=== PATIENT | male | born 1985 | race Caucasian/White ===

== ENCOUNTER 2017-01-10 14:55 | Emergency (ER) | payer OTHER ==
--- NOTE | 2017-01-10 15:48 | DIAGNOSTIC IMAGING REPORT ---
PROCEDURE: XR KNEE 4 VIEWS - LEFT INDICATION: PAIN, SWELLING, TWISTED IN A FEW DAYS AGO TECHNIQUE: Four views. COMPARISON: None. FINDINGS: Osseous structures and joint spaces are normal. There is a bipartite patella. IMPRESSION: 1. Bipartite patella. Normal knee.
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
--- NOTE | 2017-01-10 16:57 | ED ORDER SUMMARY ---
..... Patient: KINA JEONG JR OrderSheet [facility] VisitID: [id number] [place] [address] 31y, M Registration Date/Time: 01/10/2017 ORDER SHEET Weight: 104.3 kg (stated) Allergies: Methocarbamol GENERAL ORDERS: Knee 4V Left Urgent (15:14 01/10/2017 Jon Chavez) (Ack 15:20 Angyrglenys) (15:40 Marielena) Ice (15:16 01/10/2017 Jon Chavez) (15:42 Alice R.N.) Immobilizer - knee (17:31 01/10/2017 Alice R.N. verbal order read back to Jon Chavez) (17:31 Alice R.N.) MEDICATION ORDERS: Hydrocodone-APAP PO 5/325 mg (NOW, HIGH ALERT MEDICATION) (15:15 01/10/2017 Jon Chavez) (Ack 15:23 Myrna R.NReed) (15:42 Alice R.N.) IV FLUIDS: ORDER SHEET NOTES: [Electronically signed by Melissa Zaragoza R.N. (19:54 01/10/2017)] [Electronically signed by Marco A Weathers Dr. (13:53 01/11/2017)] [Electronically locked/signed by Melissa Zaragoza R.N. (19:54 01/10/2017)]
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
--- NOTE | 2017-01-10 16:57 | ED ORDER SUMMARY ---
..... Patient: KINA JEONG JR OrderSheet [facility] VisitID: [id number] [place] [address] 31y, M Registration Date/Time: 01/10/2017 ORDER SHEET Weight: 104.3 kg (stated) Allergies: Methocarbamol GENERAL ORDERS: Knee 4V Left Urgent (15:14 01/10/2017 Jon Chavez) (Ack 15:20 Angyrglenys) (15:40 Marielena) Ice (15:16 01/10/2017 Jon Chavez) (15:42 Alice R.N.) Immobilizer - knee (17:31 01/10/2017 Alice R.N. verbal order read back to Jon Chavez) (17:31 Alice R.N.) MEDICATION ORDERS: Hydrocodone-APAP PO 5/325 mg (NOW, HIGH ALERT MEDICATION) (15:15 01/10/2017 Jon Chavez) (Ack 15:23 Myrna R.NReed) (15:42 Alice R.N.) IV FLUIDS: ORDER SHEET NOTES: [Electronically signed by Melissa Zaragoza R.N. (19:54 01/10/2017)] [Electronically signed by Marco A Weathers Dr. (13:53 01/11/2017)] [Electronically locked/signed by Melissa Zaragoza R.N. (19:54 01/10/2017)]
--- NOTE | 2017-01-11 13:53 | ED DISCHARGE INSTRUCTIONS ---
Patient: KINA JEONG JR General Instructions [facility] VisitID: [id number] [place] [address] 31y, M Registration Date/Time: 01/10/2017 Hypertensive. Oxygen saturation normal. Left knee effusion (acute). Sprain of the left medial collateral ligament. Essential hypertension. INSTRUCTIONS Warnings: GENERAL WARNINGS: Return or contact your physician immediately if your condition worsens or changes unexpectedly, if not improving as expected, or if other problems arise. Specifically return if pain, vomiting, bleeding, breathing difficulty or fever. Your Current Medications: CONTINUE TAKING THE FOLLOWING MEDICATIONS: None*. Prescription Medications: Redding 5 mg / 325 mg tablets: take 1 orally every 6 hours as needed for pain. Dispense fifteen (15). No refill. Substitution is permissible. Motrin 600 mg tablets: take 1 tablet orally every 6 hours as needed for pain, stiffness or swelling. Dispense thirty (30). No refill. Substitution is permissible. Follow-up: Return to the emergency department as needed. Follow up with your doctor in three days. Reason for referral: recheck today's concerns. Summary of care provided to patient via paper. Screening today revealed the patient's blood pressure to be in the hypertensive range. The patient should follow up with a primary care provider for blood pressure management. Understanding of the discharge instructions verbalized by patient. ADDITIONAL INFORMATION Sprain, Knee A sprain is an injury to the ligaments or capsule that holds a joint together. There are no broken bones. Most sprains take three to six weeks to heal. If the ligament is completely torn (severe sprain), it can take months to recover from. Most knee sprains are treated with a splint, knee immobilizer or elastic wrap for support. Severe sprains may require surgery. Home care The following guidelines will help you care for your injury at home: Stay off the injured leg as much as possible until you can walk on it without pain. If you have a lot of pain with walking, crutches or a walker may be prescribed. (These can be rented or purchased at many pharmacies and surgical or orthopedic supply stores). Follow your doctor's advice regarding when to begin bearing weight on that leg. Keep your leg elevated to reduce pain and swelling. When sleeping, place a pillow under the injured leg. When sitting, support the injured leg so it is level with your waist. This is very important during the first 48 hours. Apply an ice pack (ice cubes in a plastic bag, wrapped in a towel) over the injured area for 20 minutes every 12 hours the first day. You can place the ice pack directly over the splint. If a Velcro knee immobilizer was applied, you can open this to apply the ice pack directly to the knee. Continue with ice packs 34 times a day for the next two days, then as needed for the relief of pain and swelling. You may use acetaminophen or ibuprofen to control pain, unless another pain medicine was prescribed. If you have chronic liver or kidney disease or ever had a stomach ulcer or GI bleeding, talk with your doctor before using these medicines. If you were given a splint, keep it completely dry at all times. Bathe with your splint out of the water, protected with a large plastic bag, rubber-banded at the top end. If a fiberglass splint gets wet, you can dry it with a hair-dryer. If you have a Velcro knee immobilizer, you can remove this to bathe, unless told otherwise. Follow-up care Follow up with your doctor as advised. Any X-rays you had today dont show any broken bones, breaks, or fractures. Sometimes fractures dont show up on the first X-ray. Bruises and sprains can sometimes hurt as much as a fracture. These injuries can take time to heal completely. If your symptoms dont improve or they get worse, talk with your doctor. You may need a repeat X-ray. When to seek medical care Get prompt medical attention if any of the following occur: The plaster cast or splint becomes wet or soft The fiberglass cast or splint remains wet for more than 24 hours Pain or swelling increases Toes become cold, blue, numb or tingly High Blood Pressure -- To Be Confirmed [No Tx] Your blood pressure was higher today than normal. Sometimes anxiety or pain can cause a temporary rise in blood pressure that later returns to normal. If your blood pressure is high on one measurement, this does not mean that you have hypertension (a chronic illness). However, you must have your blood pressure measured again within the next few days to find out if its still high. A normal blood pressure is 120/80 or less. The first (top) number is the "systolic" pressure. The second (bottom) number is the "diastolic" pressure. Hypertension exists when either the top number is 140 or higher, OR the bottom number is 90 or higher on repeated measurements. Blood pressure in the range of 120-140 (systolic) or 80-89 (diastolic) is considered "pre-hypertension". This means your are at risk for getting hypertension. You should have regular blood pressure checks to be sure your blood pressure is not rising. Home Care: Measure your blood pressure on 3 different days and write down the results. This can be done at your doctor's office or this facility. Some pharmacies and grocery stores offer automated blood pressure machines for your use. Follow Up: If your blood pressure is "high" (over 120/80) on 2 out of 3 days, you will need to follow up with your doctor for further evaluation and treatment. DO NOT PUT THIS OFF! Untreated high blood pressure increases the risk for heart attack, also known as acute myocardial infarction, or AMI, and stroke. It is a treatable condition. Get Prompt Medical Attention if any of the following occur: Chest pain or shortness of breath Severe headache Throbbing or rushing sound in the ears Nosebleed Sudden severe abdominal pain Extreme drowsiness, confusion or fainting Dizziness or vertigo (dizziness with spinning sensation) Weakness of an arm or leg or one side of the face Difficulty with speech or vision Knee Effusion A knee effusion is sometimes calledwater on the knee. The knee joint normally contains less than one ounce of lubricating fluid. Injury or inflammation of the knee joint causes extra fluid to collect there. When this occurs, the knee joint looks swollen and is usually painful. There may be difficulty in fully bending the knee. The most common cause of knee effusion is osteoarthritis due to wear and tear on the joint cartilage. Other causes include injury to the cartilage, inflammatory arthritis (such as gout or rheumatoid arthritis), and infection of the joint. If the cause of your knee effusion is not certain, a needle aspiration may be performed. This procedure removes a sample of joint fluid from the knee for testing. This is done with a local anesthetic. Removing excess fluid may also relieve swelling and pain. Home Care: Limit your activities. Avoid weight-bearing activities as much as possible when your knee is painful and swollen. Keep your leg elevated to reduce pain and swelling. When sleeping, place a pillow under the injured leg. When sitting, support the injured leg so it is level with your waist. This is very important during the first 48 hours. Apply an ice pack (ice cubes in a plastic bag, wrapped in a towel) over the injured area for 20 minutes every 1-2 hours the first day. Continue with ice packs 3-4 times a day for the next two days, then as needed for the relief of pain and swelling. You may use acetaminophen (Tylenol) or ibuprofen (Motrin, Advil) to control pain, unless another pain medicine was prescribed. [NOTE: If you have chronic liver or kidney disease or have ever had a stomach ulcer, talk with your doctor before using these medicines.] Ifcrutches or a walker have been recommended, do not bear full weight on the injured leg until you can do so without pain. Check with your doctor before returning to sports or full work duties. If you were given a Velcro knee brace: You may open the splint to apply ice. You may remove the splint to bathe and sleep, unless told otherwise. Follow Up with your doctor or as advised by our staff. If you are overweight, talk to your doctor about a weight loss program. The excess weight puts extra strain on your knees. Return Promptly or contact your doctor if any of the following occur: Increasing pain, redness or swelling of the knee Fever of 100.4F (38C) or higher, or as directed by your healthcare provider Hydrocodone Bitartrate, Acetaminophen Oral tablet What is this medicine? ACETAMINOPHEN; HYDROCODONE (a set a MAYELA tiana fen; joey droe KOE done) is a pain reliever. It is used to treat mild to moderate pain. How should I use this medicine? Take this medicine by mouth. Swallow it with a full glass of water. Follow the directions on the prescription label. If the medicine upsets your stomach, take the medicine with food or milk. Do not take more than you are told to take. Talk to your facility maintenance technician regarding the use of this medicine in children. This medicine is not approved for use in children. What side effects may I notice from receiving this medicine? Side effects that you should report to your doctor or health career resource technician as soon as possible: allergic reactions like skin rash, itching or hives, swelling of the face, lips, or tongue breathing problems confusion feeling faint or lightheaded, falls stomach pain yellowing of the eyes or skin Side effects that usually do not require medical attention (report to your doctor or health career resource technician if they continue or are bothersome): nausea, vomiting stomach upset What may interact with this medicine? alcohol antihistamines isoniazid medicines for depression, anxiety, or psychotic disturbances medicines for sleep muscle relaxants naltrexone narcotic medicines (opiates) for pain phenobarbital ritonavir tramadol What if I miss a dose? If you miss a dose, take it as soon as you can. If it is almost time for your next dose, take only that dose. Do not take double or extra doses. Where should I keep my medicine? Keep out of the reach of children. This medicine can be abused. Keep your medicine in a safe place to protect it from theft. Do not share this medicine with anyone. Selling or giving away this medicine is dangerous and against the law. Store at room temperature between 15 and 30 degrees C (59 and 86 degrees F). Protect from light. Keep container tightly closed. Throw away any unused medicine after the expiration date. Discard unused medicine and used packaging carefully. Pets and children can be harmed if they find used or lost packages. What should I tell my health care provider before I take this medicine? They need to know if you have any of these conditions: brain tumor Crohn's disease, inflammatory bowel disease, or ulcerative colitis drink more than 3 alcohol-containing drinks per day drug abuse or addiction head injury heart or circulation problems kidney disease or problems going to the bathroom liver disease lung disease, asthma, or breathing problems an unusual or allergic reaction to acetaminophen, hydrocodone, other opioid analgesics, other medicines, foods, dyes, or preservatives or trying to get breast-feeding What should I watch for while using this medicine? Tell your doctor or health career resource technician if your pain does not go away, if it gets worse, or if you have new or a different type of pain. You may develop tolerance to the medicine. Tolerance means that you will need a higher dose of the medicine for pain relief. Tolerance is normal and is expected if you take the medicine for a long time. Do not suddenly stop taking your medicine because you may develop a severe reaction. Your body becomes used to the medicine. This does NOT mean you are addicted. Addiction is a behavior related to getting and using a drug for a non-medical reason. If you have pain, you have a medical reason to take pain medicine. Your doctor will tell you how much medicine to take. If your doctor wants you to stop the medicine, the dose will be slowly lowered over time to avoid any side effects. You may get drowsy or dizzy when you first start taking the medicine or change doses. Do not drive, use machinery, or do anything that may be dangerous until you know how the medicine affects you. Stand or sit up slowly. There are different types of narcotic medicines (opiates) for pain. If you take more than one type at the same time, you may have more side effects. Give your health care provider a list of all medicines you use. Your doctor will tell you how much medicine to take. Do not take more medicine than directed. Call emergency for help if you have problems breathing. The medicine will cause constipation. Try to have a bowel movement at least every 2 to 3 days. If you do not have a bowel movement for 3 days, call your doctor or health career resource technician. Too much acetaminophen can be very dangerous. Do not take Tylenol (acetaminophen) or medicines that contain acetaminophen with this medicine. Many non-prescription medicines contain acetaminophen. Always read the labels carefully. Ibuprofen Oral tablet What is this medicine? IBUPROFEN (eye BYOO proe fen) is a non-steroidal anti-inflammatory drug (NSAID). It is used for dental pain, fever, headaches or migraines, osteoarthritis, rheumatoid arthritis, or painful monthly periods. It can also relieve minor aches and pains caused by a cold, flu, or sore throat. How should I use this medicine? Take this medicine by mouth with a glass of water. Follow the directions on the prescription label. Take this medicine with food if your stomach gets upset. Try to not lie down for at least 10 minutes after you take the medicine. Take your medicine at regular intervals. Do not take your medicine more often than directed. A special MedGuide will be given to you by the pharmacist with each prescription and refill. Be sure to read this information carefully each time. Talk to your facility maintenance technician regarding the use of this medicine in children. Special care may be needed. What side effects may I notice from receiving this medicine? Side effects that you should report to your doctor or health career resource technician as soon as possible: allergic reactions like skin rash, itching or hives, swelling of the face, lips, or tongue black or bloody stools, blood in the urine or in vomit breathing problems changes in vision chest pain general ill feeling or flu-like symptoms nausea or vomiting redness, blistering, peeling or loosening of the skin, including inside the mouth slurred speech or weakness on one side of the body stomach pain unexplained weight gain or swelling unusually weak or tired yellowing of eyes or skin Side effects that usually do not require medical attention (report to your doctor or health career resource technician if they continue or are bothersome): constipation or diarrhea dizziness gas or heartburn stomach upset What may interact with this medicine? Do not take this medicine with any of the following medications: cidofovir ketorolac methotrexate pemetrexed This medicine may also interact with the following medications: alcohol aspirin diuretics lithium other drugs for inflammation like prednisone warfarin What if I miss a dose? If you miss a dose, take it as soon as you can. If it is almost time for your next dose, take only that dose. Do not take double or extra doses. Where should I keep my medicine? Keep out of the reach of children. Store at room temperature between 15 and 30 degrees C (59 and 86 degrees F). Keep container tightly closed. Throw away any unused medicine after the expiration date. What should I tell my health care provider before I take this medicine? They need to know if you have any of these conditions: asthma cigarette smoker drink more than 3 alcohol containing drinks a day heart disease or circulation problems such as heart failure or leg edema (fluid retention) high blood pressure kidney disease liver disease stomach bleeding or ulcers an unusual or allergic reaction to ibuprofen, aspirin, other NSAIDS, other medicines, foods, dyes, or preservatives or trying to get breast-feeding What should I watch for while using this medicine? Tell your doctor or healthcare professional if your symptoms do not start to get better or if they get worse. This medicine does not prevent heart attack or stroke. In fact, this medicine may increase the chance of a heart attack or stroke. The chance may increase with longer use of this medicine and in people who have heart disease. If you take aspirin to prevent heart attack or stroke, talk with your doctor or health career resource technician. Do not take other medicines that contain aspirin, ibuprofen, or naproxen with this medicine. Side effects such as stomach upset, nausea, or ulcers may be more likely to occur. Many medicines available without a prescription should not be taken with this medicine. This medicine can cause ulcers and bleeding in the stomach and intestines at any time during treatment. Ulcers and bleeding can happen without warning symptoms and can cause . To reduce your risk, do not smoke cigarettes or drink alcohol while you are taking this medicine. You may get drowsy or dizzy. Do not drive, use machinery, or do anything that needs mental alertness until you know how this medicine affects you. Do not stand or sit up quickly, especially if you are an older patient. This reduces the risk of dizzy or fainting spells. This medicine can cause you to bleed more easily. Try to avoid damage to your teeth and gums when you brush or floss your teeth. You have been given the following additional information: Knee Sprain Hypertension, To Be Confirmed Knee Effusion Hydrocodone Bitartrate, Acetaminophen Oral tablet Ibuprofen Oral tablet (Electronically signed by Marco A Weathers Dr. 01/11/2017 13:53)
--- NOTE | 2017-01-11 13:53 | ED MAR SUMMARY ---
..... Medication Administration Record [facility] [address] [place] [address] Patient: KINA JEONG Visit ID: [id number] 31y, M Weight: 104.3 kg Height/Length: 70 in BMI: 33 ALLERGIES: Methocarbamol Given 15:42 01/10/2017 Melissa Zaragoza R.N. Medication Administered: HYDROCODONE-APAP [PO] (HYDROCODONE-ACETAMINOPHEN), Dose: 1 tab 5/325 mg Tablets PO. Medication Ordered: Hydrocodone-APAP PO 5/325 mg (NOW, HIGH ALERT MEDICATION).
--- NOTE | 2017-01-11 13:53 | ED MAR SUMMARY ---
..... Medication Administration Record [facility] [address] [place] [address] Patient: KINA JEONG Visit ID: [id number] 31y, M Weight: 104.3 kg Height/Length: 70 in BMI: 33 ALLERGIES: Methocarbamol Given 15:42 01/10/2017 Melissa Zaragoza R.N. Medication Administered: HYDROCODONE-APAP [PO] (HYDROCODONE-ACETAMINOPHEN), Dose: 1 tab 5/325 mg Tablets PO. Medication Ordered: Hydrocodone-APAP PO 5/325 mg (NOW, HIGH ALERT MEDICATION).
--- NOTE | 2017-01-11 13:53 | ED MED RECONCILIATION SUMMARY ---
Patient: KINA JEONG JR Medication Reconciliation Report [facility] VisitID: [id number] [place] [address] 31y, M Registration Date/Time: 01/10/2017 Weight: 104.3 kg Height/Length: 70 in. BMI: 33.0 ALLERGIES: Methocarbamol The patient's Home Medications are listed below: NONE. The source(s) of the original Home Medication information: Not obtained. The following Medications were given to the patient in the Emergency Department: Hydrocodone-APAP [PO] PO 1 tab, administered: 01/10/2017 3:42:00 PM The following Medications were prescribed to the patient: Huggins 5 mg / 325 mg tablets: take 1 orally every 6 hours as needed for pain. Dispense fifteen (15). No refill. Substitution is permissible. -- Marco A Weathers Dr. Motrin 600 mg tablets: take 1 tablet orally every 6 hours as needed for pain, stiffness or swelling. Dispense thirty (30). No refill. Substitution is permissible. -- Marco A Weathers Dr.
--- NOTE | 2017-01-11 13:53 | ED MED RECONCILIATION SUMMARY ---
Patient: KINA JEONG JR Medication Reconciliation Report [facility] VisitID: [id number] [place] [address] 31y, M Registration Date/Time: 01/10/2017 Weight: 104.3 kg Height/Length: 70 in. BMI: 33.0 ALLERGIES: Methocarbamol The patient's Home Medications are listed below: NONE. The source(s) of the original Home Medication information: Not obtained. The following Medications were given to the patient in the Emergency Department: Hydrocodone-APAP [PO] PO 1 tab, administered: 01/10/2017 3:42:00 PM The following Medications were prescribed to the patient: Norton 5 mg / 325 mg tablets: take 1 orally every 6 hours as needed for pain. Dispense fifteen (15). No refill. Substitution is permissible. -- Marco A Weathers Dr. Motrin 600 mg tablets: take 1 tablet orally every 6 hours as needed for pain, stiffness or swelling. Dispense thirty (30). No refill. Substitution is permissible. -- Marco A Weathers Dr.
== END 2017-01-10 17:05 | disposition home or self-care (01) ==
LOC: ED SRH 14:55
DX: S83.412A Sprain of medial collateral ligament of left knee, initial encounter (principal); M25.462 Effusion, left knee; I10 Essential (primary) hypertension; X50.0XXA Overexertion from strenuous movement or load, initial encounter; Y93.9 Activity, unspecified; Y92.009 Unspecified place in unspecified non-institutional (private) residence as the place of occurrence of the external cause; Y99.9 Unspecified external cause status

== ENCOUNTER 2017-03-25 15:15 | Emergency (ER) | payer OTHER ==
--- NOTE | 2017-03-25 19:01 | ED ORDER SUMMARY ---
..... Patient: KINA JEONG JR OrderSheet [facility] VisitID: [id number] [place] [address] 32y, M Registration Date/Time: 03/25/2017 ORDER SHEET Weight: 103.4 kg (stated) Allergies: Methocarbamol GENERAL ORDERS: Lumbar Spine 2 or 3V Urgent (16:41 03/25/2017 HBivens A.R.N.P.) (Ack 16:44 Marielena) (16:53 Marielena) MEDICATION ORDERS: Toradol IM 60 mg (NOW) (16:41 03/25/2017 HBivens A.R.N.P.) (Ack 18:13 Francisco R.N.) (18:18 SRelizette R.N.) IV FLUIDS: ORDER SHEET NOTES: [Electronically signed by Maria Isabel Wadsworth R.N. (19:17 03/25/2017)] [Electronically signed by Allegra Griffith.R.N.P. (20:36 03/25/2017)] [Electronically locked/signed by Maria Isabel Wadsworth R.N. (19:17 03/25/2017)]
--- NOTE | 2017-03-25 19:01 | ED ORDER SUMMARY ---
..... Patient: KINA JEONG JR OrderSheet [facility] VisitID: [id number] [place] [address] 32y, M Registration Date/Time: 03/25/2017 ORDER SHEET Weight: 103.4 kg (stated) Allergies: Methocarbamol GENERAL ORDERS: Lumbar Spine 2 or 3V Urgent (16:41 03/25/2017 HBivens A.R.N.P.) (Ack 16:44 Marielena) (16:53 Marielena) MEDICATION ORDERS: Toradol IM 60 mg (NOW) (16:41 03/25/2017 HBivens A.R.N.P.) (Ack 18:13 Francisco R.N.) (18:18 SRelizette R.N.) IV FLUIDS: ORDER SHEET NOTES: [Electronically signed by Maria Isabel Wadsworth R.N. (19:17 03/25/2017)] [Electronically signed by Allegra Griffith.R.N.P. (20:36 03/25/2017)] [Electronically locked/signed by Maria Isabel Wadsworth R.N. (19:17 03/25/2017)]
--- NOTE | 2017-03-25 19:01 | ED NURSING NOTES ---
Clinical Report - Nurses [facility] [address] [place] [address] 03/25/2017 15:17 Patient: KINA JEONG JR TRIAGE Triage time 15:24. Acuity: LEVEL 3. Chief Complaint: BACK PAIN and (lower lt back, and down lt hip. Chronic back pain to the rt side.). Alert. No acute distress. ALBERTO COMA SCORE: Alberto Coma Scale: 15- eyes open spontaneously (4); best verbal response- oriented x 4 (5); best motor response- obeys commands (6). --15:34 Maria Isabel Wadsworth R.N. 15:24 03/25/17. BP: 134/88. HR: 76. RR: 20. O2 saturation: 99%. Temp: 98.1 F. Pain level now: 05/18. --15:34 Maria Isabel Wadsworth R.N. 15:24 03/25/17. BP: 134/88. HR: 76. RR: 20. O2 saturation: 99%. Temp: 98.1 F. Pain level now: 05/18. --15:35 Maria Isabel Wadsworth R.N. Weight: 103.4 kg stated. Height/Length: 70 inches Per Patient. BMI: 32.7. --15:33 Maria Isabel Wadsworth R.N. Medications Flexeril 10mg q 8 hrs . --15:30 Maria Isabel Wadsworth R.N. CHOLESTEROL MED. --15:30 Maria Isabel Wadsworth R.N. Gabepentin 800mg qid . --15:30 Maria Isabel Wadsworth R.N. Medication/allergy information source: the patient. --15:34 Maria Isabel Wadsworth R.N. Allergies Methocarbamol. --15:28 Maria Isabel Wadsworth R.N. History Arrived by private vehicle. Historian: patient and family. Accompanied by family. Primary physician (cheney). This started today. He has had left leg pain (in the hip). No history of recent trauma. No numbness or tingling. Treatment [employer]LECTRONIC [employer] RECORDER: Took ibuprofen. PAST MEDICAL HX: Tetanus status: unknown. SOCIAL HX: Smoker- current status unknown. Occasional alcohol use. No drug use. ABUSE ASSESSMENT: No report of abuse. FALL RISK ASSESSMENT: Fall risk assessment completed. No fall risk identified. NUTRITIONAL RISK ASSESSMENT: The nutritional risk assessment revealed no deficiencies. FUNCTIONAL ASSESSMENT: Functional assessment: no impairments noted. LEARNING NEEDS ASSESSMENT: The learning needs assessment revealed no barriers. SKIN INTEGRITY ASSESSMENT: Skin integrity risk assessment completed. No skin integrity risk identified. --15:34 Maria Isabel Wadsworth R.N. PROBLEMS: Hypertension. Knee Injury. Knee Effusion. Muscle Strain, Lower Extremity. Back Pain. Burn. --15:31 Maria Isabel Wadsworth R.N. Facial Cellulitis [RuleOut]. Cellulitis [RuleOut]. --15:31 Maria Isabel Wadsworth R.N. ADDITIONAL SURGERIES: Back Surgery. Dental Surgery. --15:31 Maria Isabel Wadsworth R.N. Interventions ID band on patient. To room. --15:34 Maria Isabel Wadsworth R.N. PHYSICAL ASSESSMENT Ambulatory to room. Patient gowned. GENERAL / NEURO / PSYCH: Alert. Oriented X 4. Appears in pain and anxious. No numbness. RESPIRATORY: Respirations not labored. CVS: Capillary refill less than 2 seconds. GI / : Abdomen nontender. EXTREMITIES: Limited ROM present. BACK: Limited ROM of the back. --15:35 Maria Isabel Wadsworth R.N. NURSING PROGRESS NOTES Patient gowned. Head of bed elevated. Two patient identifiers checked. Call light placed in reach. Side rails up x 2. Bed placed in lowest position. Brakes of bed on. Patient ready for evaluation. --15:35 Maria Isabel Wadsworth R.N. 18:18 03/25/2017 Toradol (Ketorolac Tromethamine) IM 60 mg given. Given in the right gluteus himanshu. Allergies verified and confirmed 5 rights. --18:18 Kacy Lara R.N. DISPOSITION / DISCHARGE 19:05. Condition at departure: improved. No learning barriers present. Discharge instructions provided and reviewed with the patient. Patient verbalized understanding. Written instructions provided in Albanian. The patient was discharged home and accompanied by spouse. He left the Emergency Department ambulatory and via private vehicle. Spouse driving. Medication list reviewed and validated. --19:17 Maria Isabel Wadsworth R.N. 19:15 03/25/17. BP: 119/87. HR: 65. RR: 20. O2 saturation: 100%. Temp: deferred. Pain level now: 12/16. 18:05 03/25/17. BP: 122/69. HR: 77. RR: 20. O2 saturation: 100%. Pain level now: 02/15. 17:04 03/25/17. BP: 128/74. HR: 74. RR: 20. O2 saturation: 100% on room air. 15:24 03/25/17. BP: 134/88. HR: 76. RR: 20. O2 saturation: 99%. Temp: 98.1 F. Pain level now: 05/18. --19:17 Maria Isabel Wadsworth R.N. Locked/Released at 03/25/2017 19:17 by Maria Isabel Wadsworth R.N.
--- NOTE | 2017-03-25 19:01 | ED CLINICAL REPORT ---
Clinical Report - Physicians/Mid Levels [facility] [address] [place] [address] 03/25/2017 15:17 Patient: KINA JEONG JR Time Seen: 16:33; initial patient contact, initial documentation, patient care assumed. Arrived- By private vehicle. Historian- patient. HISTORY OF PRESENT ILLNESS Chief Complaint: BACK PAIN and CHRONIC BACK PAIN. It is described as being severe and in the area of the left lower lumbar spine and left SI joint and radiating to the left hip. The quality is noted to be "pain" and similar to prior episodes. Modifying factors- worsened by standing, walking, rotation of the body to the right or left, bending over or lifting. Not relieved by anything. Onset was today and it is still present. It was abrupt in onset and has been constant. No bladder dysfunction, bowel dysfunction, sensory loss or motor loss. Additional history - reaching down to get creamer out of fridge, and when he straightened up felt something in his back, issues have always been on R, not L. Patient notes the possibility of an injury but denies injury to the head or neck. Similar symptoms previously: Chronically. ( but on other side). Recent medical care: Not recently seen/assessed. REVIEW OF SYSTEMS No fever, difficulty with urination, urinary frequency, hematuria or difficulty breathing. No chest pain or abdominal pain. All systems otherwise negative, except as recorded above. PAST HISTORY See nurses notes. PROBLEMS: Hypertension. Knee Injury. Knee Effusion. Muscle Strain, Lower Extremity. Back Pain. Burn. --15:31 Maria Isabel Wadsworth R.N. Facial Cellulitis [RuleOut]. Cellulitis [RuleOut]. --15:31 Maria Isabel Wadsworth R.N. ADDITIONAL SURGERIES: Back Surgery. Dental Surgery. --15:31 Maria Isabel Wadsworth R.N. SOCIAL HISTORY Never smoker. Occasional alcohol use. No drug use. No recent travel. Is a local resident. FAMILY HISTORY Negative. ADDITIONAL NOTES The nursing notes have been reviewed with agreement regarding the chief complaint, HPI, ROS, PMH and patient medications and allergies. PHYSICAL EXAM Vital Signs: 03/25/2017 15:24 BP: 134/88. HR: 76. RR: 20. O2 saturation: 99%. Temp: 98.1 F. Pain level now: 8/10. Have been reviewed as normal and appear to be correct. Appearance: Alert. No acute distress. Neck: Normal inspection. Neck nontender. Painless ROM. CVS: Heart sounds normal. Pulses normal. Respiratory: No respiratory distress. Breath sounds normal. Abdomen: No visible injury. Soft and nontender. Back: Normal inspection. No tenderness. Painless ROM. Skin: Skin warm and dry. Normal skin color. No rash. Normal skin turgor. Extremities: Extremities exhibit normal ROM. Extremities nontender. Neuro: Oriented X 3. Mood/affect normal. No motor deficit. No sensory deficit. LABS, X-RAYS, AND EKG X-Rays: X-rays are normal and reveal no acute disease (and reviewed by dr mckinney). LS spine series negative. The X-rays were independently viewed by me. PROGRESS AND PROCEDURES Patient counseled in person regarding the patient's stable condition, test results and diagnosis. Differential Diagnosis: I considered Musculo-skeletal strain, contusion, retroperitoneal hematoma, disk protrusion, vertebral fracture, facet syndrome, sacroiliac joint strain, sciatica, osteoarthritis, lumbar spondylosis, spinal stenosis, ankylosing spondylitis and sacroiliac joint inflammation as a possible cause of back pain in this patient. This is a partial list of diagnoses considered. Above considerations are based on history, physical exam, reassessment and X-Ray data. Differential diagnosis was discussed with patient. Disposition: Discharged home in good and improved condition (19:00 pt stated shot helped). Condition: good and stable. CLINICAL IMPRESSION Acute lumbar strain. INSTRUCTIONS Warnings: GENERAL WARNINGS: Return or contact your physician immediately if your condition worsens or changes unexpectedly, if not improving as expected, or if other problems arise. SPECIFICALLY, return if you develop incontinence of urine (loss of bladder control). Prescription Medications: Flexeril 10 mg: Take 1 orally every 8 hours as needed for muscle spasm. Dispense twenty (20). No refills. Substitution is permissible. Ultram 50 mg tablets: take 1-2 orally every 6 hours as needed for pain. Dispense twenty (20). No refills. Substitution is permissible. Follow-up: Follow up with your doctor in about one week as needed. Call for an appointment. Summary of care provided to patient. Understanding of the discharge instructions verbalized by patient. (Electronically signed by Allegra Griffith A.R.N.P. 03/25/2017 20:36)
--- NOTE | 2017-03-25 19:01 | ED NURSING NOTES ---
Clinical Report - Nurses [facility] [address] [place] [address] 03/25/2017 15:17 Patient: KINA JEONG JR TRIAGE Triage time 15:24. Acuity: LEVEL 3. Chief Complaint: BACK PAIN and (lower lt back, and down lt hip. Chronic back pain to the rt side.). Alert. No acute distress. ALBERTO COMA SCORE: Alberto Coma Scale: 15- eyes open spontaneously (4); best verbal response- oriented x 4 (5); best motor response- obeys commands (6). --15:34 Maria Isabel Wadsworth R.N. 15:24 03/25/17. BP: 134/88. HR: 76. RR: 20. O2 saturation: 99%. Temp: 98.1 F. Pain level now: 05/18. --15:34 Maria Isabel Wadsworth R.N. 15:24 03/25/17. BP: 134/88. HR: 76. RR: 20. O2 saturation: 99%. Temp: 98.1 F. Pain level now: 05/18. --15:35 Maria Isabel Wadsworth R.N. Weight: 103.4 kg stated. Height/Length: 70 inches Per Patient. BMI: 32.7. --15:33 Maria Isabel Wadsworth R.N. Medications Flexeril 10mg q 8 hrs . --15:30 Maria Isabel Wadsworth R.N. CHOLESTEROL MED. --15:30 Maria Isabel Wadsworth R.N. Gabepentin 800mg qid . --15:30 Maria Isabel Wadsworth R.N. Medication/allergy information source: the patient. --15:34 Maria Isabel Wadsworth R.N. Allergies Methocarbamol. --15:28 Maria Isabel Wadsworth R.N. History Arrived by private vehicle. Historian: patient and family. Accompanied by family. Primary physician (cheney). This started today. He has had left leg pain (in the hip). No history of recent trauma. No numbness or tingling. Treatment [employer] [facility]: Took ibuprofen. PAST MEDICAL HX: Tetanus status: unknown. SOCIAL HX: Smoker- current status unknown. Occasional alcohol use. No drug use. ABUSE ASSESSMENT: No report of abuse. FALL RISK ASSESSMENT: Fall risk assessment completed. No fall risk identified. NUTRITIONAL RISK ASSESSMENT: The nutritional risk assessment revealed no deficiencies. FUNCTIONAL ASSESSMENT: Functional assessment: no impairments noted. LEARNING NEEDS ASSESSMENT: The learning needs assessment revealed no barriers. SKIN INTEGRITY ASSESSMENT: Skin integrity risk assessment completed. No skin integrity risk identified. --15:34 Maria Isabel Wadsworth R.N. PROBLEMS: Hypertension. Knee Injury. Knee Effusion. Muscle Strain, Lower Extremity. Back Pain. Burn. --15:31 Maria Isabel Wadsworth R.N. Facial Cellulitis [RuleOut]. Cellulitis [RuleOut]. --15:31 Maria Isabel Wadsworth R.N. ADDITIONAL SURGERIES: Back Surgery. Dental Surgery. --15:31 Maria Isabel Wadsworth R.N. Interventions ID band on patient. To room. --15:34 Maria Isabel Wadsworth R.N. PHYSICAL ASSESSMENT Ambulatory to room. Patient gowned. GENERAL / NEURO / PSYCH: Alert. Oriented X 4. Appears in pain and anxious. No numbness. RESPIRATORY: Respirations not labored. CVS: Capillary refill less than 2 seconds. GI / : Abdomen nontender. EXTREMITIES: Limited ROM present. BACK: Limited ROM of the back. --15:35 Maria Isabel Wadsworth R.N. NURSING PROGRESS NOTES Patient gowned. Head of bed elevated. Two patient identifiers checked. Call light placed in reach. Side rails up x 2. Bed placed in lowest position. Brakes of bed on. Patient ready for evaluation. --15:35 Maria Isabel Wadsworth R.N. 18:18 03/25/2017 Toradol (Ketorolac Tromethamine) IM 60 mg given. Given in the right gluteus himanshu. Allergies verified and confirmed 5 rights. --18:18 Kacy Lara R.N. DISPOSITION / DISCHARGE 19:05. Condition at departure: improved. No learning barriers present. Discharge instructions provided and reviewed with the patient. Patient verbalized understanding. Written instructions provided in Syriac. The patient was discharged home and accompanied by spouse. He left the Emergency Department ambulatory and via private vehicle. Spouse driving. Medication list reviewed and validated. --19:17 Maria Isabel Wadsworth R.N. 19:15 03/25/17. BP: 119/87. HR: 65. RR: 20. O2 saturation: 100%. Temp: deferred. Pain level now: 12/16. 18:05 03/25/17. BP: 122/69. HR: 77. RR: 20. O2 saturation: 100%. Pain level now: 02/15. 17:04 03/25/17. BP: 128/74. HR: 74. RR: 20. O2 saturation: 100% on room air. 15:24 03/25/17. BP: 134/88. HR: 76. RR: 20. O2 saturation: 99%. Temp: 98.1 F. Pain level now: 05/18. --19:17 Maria Isabel Wadsworth R.N. Locked/Released at 03/25/2017 19:17 by Maria Isabel Wadsworth R.N.
--- NOTE | 2017-03-25 19:51 | DIAGNOSTIC IMAGING REPORT ---
PROCEDURE: XR LUMBAR SPINE 2 OR 3 VIEWS INDICATION: LOWER BACK PAIN TECHNIQUE: Three views of the lumbar spine COMPARISON: None. FINDINGS: Five lumbar-type vertebral bodies are present. . Anterolisthesis at L5-S1 which has been stabilized by a fusion hardware. No evidence of hardware failure. L3 and L4 laminectomy. Normal vertebral body height without fracture. Normal transverse alignment moderately decreased L5-S1 disc space with spacer material suboptimally seen. No significant endplate or facet joint degeneration. The visible osseous pelvis and bowel gas pattern are normal. IMPRESSION: 1. Surgical changes from L3-S1 without evidence of L5-S1 hardware failure. 2. Grade 1 L5-S1 anterolisthesis. 3. No evidence of acute fracture or subluxation.
--- NOTE | 2017-03-25 20:37 | ED MED RECONCILIATION SUMMARY ---
Patient: KINA JEONG Medication Reconciliation Report [facility] VisitID: [id number] [place] [address] 32y, M Registration Date/Time: 03/25/2017 Weight: 103.4 kg Height/Length: 70 in. BMI: 32.7 ALLERGIES: Methocarbamol The patient's Home Medications are listed below: THE FOLLOWING MEDICATIONS NEED TO BE RECONCILED: CHOLESTEROL MED Flexeril 10mg q 8 hrs Gabepentin 800mg qid The source(s) of the original Home Medication information: patient The following Medications were given to the patient in the Emergency Department: Toradol [IM] IM 60 mg, administered: 03/25/2017 6:18:00 PM The following Medications were prescribed to the patient: Flexeril 10 mg: Take 1 orally every 8 hours as needed for muscle spasm. Dispense twenty (20). No refills. Substitution is permissible. -- Allegra Griffith A.R.NReedP. Ultram 50 mg tablets: take 1-2 orally every 6 hours as needed for pain. Dispense twenty (20). No refills. Substitution is permissible. -- Allegra Griffith A.R.N.P.
--- NOTE | 2017-03-25 20:37 | ED MAR SUMMARY ---
..... Medication Administration Record [facility] [address] [place] [address] Patient: KINA JEONG Visit ID: [id number] 32y, M Weight: 103.4 kg Height/Length: 70 in BMI: 32.7 ALLERGIES: Methocarbamol Given 18:18 03/25/2017 Kacy Lara R.N. Medication Administered: TORADOL [IM] (KETOROLAC TROMETHAMINE), Dose: 60 mg IM. Medication Ordered: Toradol IM 60 mg (NOW).
--- NOTE | 2017-03-25 20:37 | ED MAR SUMMARY ---
..... Medication Administration Record [facility] [address] [place] [address] Patient: KINA JEONG Visit ID: [id number] 32y, M Weight: 103.4 kg Height/Length: 70 in BMI: 32.7 ALLERGIES: Methocarbamol Given 18:18 03/25/2017 Kacy Lara R.N. Medication Administered: TORADOL [IM] (KETOROLAC TROMETHAMINE), Dose: 60 mg IM. Medication Ordered: Toradol IM 60 mg (NOW).
--- NOTE | 2017-03-25 20:37 | ED MED RECONCILIATION SUMMARY ---
Patient: KINA JEONG Medication Reconciliation Report [facility] VisitID: [id number] [place] [address] 32y, M Registration Date/Time: 03/25/2017 Weight: 103.4 kg Height/Length: 70 in. BMI: 32.7 ALLERGIES: Methocarbamol The patient's Home Medications are listed below: THE FOLLOWING MEDICATIONS NEED TO BE RECONCILED: CHOLESTEROL MED Flexeril 10mg q 8 hrs Gabepentin 800mg qid The source(s) of the original Home Medication information: patient The following Medications were given to the patient in the Emergency Department: Toradol [IM] IM 60 mg, administered: 03/25/2017 6:18:00 PM The following Medications were prescribed to the patient: Flexeril 10 mg: Take 1 orally every 8 hours as needed for muscle spasm. Dispense twenty (20). No refills. Substitution is permissible. -- Allegra Griffith A.R.NReedP. Ultram 50 mg tablets: take 1-2 orally every 6 hours as needed for pain. Dispense twenty (20). No refills. Substitution is permissible. -- Allegra Griffith A.R.N.P.
--- NOTE | 2017-03-25 20:37 | ED DISCHARGE INSTRUCTIONS ---
Patient: KINA JEONG JR General Instructions [facility] VisitID: [id number] [place] [address] 32y, M Registration Date/Time: 03/25/2017 Acute lumbar strain. INSTRUCTIONS Warnings: GENERAL WARNINGS: Return or contact your physician immediately if your condition worsens or changes unexpectedly, if not improving as expected, or if other problems arise. SPECIFICALLY, return if you develop incontinence of urine (loss of bladder control). Prescription Medications: Flexeril 10 mg: Take 1 orally every 8 hours as needed for muscle spasm. Dispense twenty (20). No refills. Substitution is permissible. Ultram 50 mg tablets: take 1-2 orally every 6 hours as needed for pain. Dispense twenty (20). No refills. Substitution is permissible. Follow-up: Follow up with your doctor in about one week as needed. Call for an appointment. Summary of care provided to patient. Understanding of the discharge instructions verbalized by patient. ADDITIONAL INFORMATION Back Pain [Acute Or Chronic] Back pain is usually caused by an injury to the muscles or ligaments of the spine. Sometimes the disks that separate each bone in the spine may bulge and cause pain by pressing on a nearby nerve. Back pain may also appear after a sudden twisting/bending force (such as in a car accident), after a simple awkward movement, or lifting something heavy with poor body positioning. In either case, muscle spasm is often present and adds to the pain. Acute back pain usually gets better in one to two weeks. Back pain related to disk disease, arthritis in the spinal joints or spinal stenosis (narrowing of the spinal canal) can become chronic and last for months or years. Unless you had a physical injury (for example, a car accident or fall) X-rays are usually not ordered for the initial evaluation of back pain. If pain continues and does not respond to medical treatment, x-rays and other tests may be performed at a later time. Home Care: You may need to stay in bed the first few days. But, as soon as possible, begin sitting or walking to avoid problems with prolonged bed rest (muscle weakness, worsening back stiffness and pain, blood clots in the legs). When in bed, try to find a position of comfort. A firm mattress is best. Try lying flat on your back with pillows under your knees. You can also try lying on your side with your knees bent up towards your chest and a pillow between your knees. Avoid prolonged sitting. This puts more stress on the lower back than standing or walking. During the first two days after injury, apply an ICE PACK to the painful area for 20 minutes every 2-4 hours. This will reduce swelling and pain. HEAT (hot shower, hot bath or heating pad) works well for muscle spasm. You can start with ice, then switch to heat after two days. Some patients feel best alternating ice and heat treatments. Use the one method that feels the best to you. You may use acetaminophen (Tylenol) or ibuprofen (Motrin, Advil) to control pain, unless another pain medicine was prescribed. [NOTE: If you have chronic liver or kidney disease or ever had a stomach ulcer or GI bleeding, talk with your doctor before using these medicines.] Be aware of safe lifting methods and do not lift anything over 15 pounds until all the pain is gone. Follow Up with your doctor or this facility if your symptoms do not start to improve after one week. Physical therapy may be needed. [NOTE: If X-rays were taken, they will be reviewed by a radiologist. You will be notified of any new findings that may affect your care.] Get Prompt Medical Attention if any of the following occur: Pain becomes worse or spreads to your legs Weakness or numbness in one or both legs Loss of bowel or bladder control Numbness in the groin or genital area Cyclobenzaprine Hydrochloride Oral tablet What is this medicine? CYCLOBENZAPRINE (sonali campos) is a muscle relaxer. It is used to treat muscle pain, spasms, and stiffness. How should I use this medicine? Take this medicine by mouth with a glass of water. Follow the directions on the prescription label. If this medicine upsets your stomach, take it with food or milk. Take your medicine at regular intervals. Do not take it more often than directed. Talk to your electronics assembler and tester regarding the use of this medicine in children. Special care may be needed. What side effects may I notice from receiving this medicine? Side effects that you should report to your doctor or health post acute care nurse practitioner as soon as possible: allergic reactions like skin rash, itching or hives, swelling of the face, lips, or tongue chest pain fast heartbeat hallucinations seizures vomiting Side effects that usually do not require medical attention (report to your doctor or health post acute care nurse practitioner if they continue or are bothersome): headache What may interact with this medicine? Do not take this medicine with any of the following medications: cisapride droperidol flecainide grepafloxacin halofantrine levomethadyl MAOIs like Carbex, Eldepryl, Marplan, Nardil, and Parnate nilotinib pimozide probucol sertindole This medicine may also interact with the following medications: abarelix alcohol contrast dyes dolasetron guanethidine medicines for cancer medicines for depression, anxiety, or psychotic disturbances medicines to treat an irregular heartbeat medicines used for sleep or numbness during surgery or procedure methadone octreotide ondansetron palonosetron phenothiazines like chlorpromazine, mesoridazine, prochlorperazine, thioridazine some medicines for infection like alfuzosin, chloroquine, clarithromycin, levofloxacin, mefloquine, pentamidine, troleandomycin tramadol vardenafil What if I miss a dose? If you miss a dose, take it as soon as you can. If it is almost time for your next dose, take only that dose. Do not take double or extra doses. Where should I keep my medicine? Keep out of the reach of children. Store at room temperature between 15 and 30 degrees C (59 and 86 degrees F). Keep container tightly closed. Throw away any unused medicine after the expiration date. What should I tell my health care provider before I take this medicine? They need to know if you have any of these conditions: heart disease, irregular heartbeat, or previous heart attack liver disease thyroid problem an unusual or allergic reaction to cyclobenzaprine, tricyclic antidepressants, lactose, other medicines, foods, dyes, or preservatives or trying to get breast-feeding What should I watch for while using this medicine? Check with your doctor or health post acute care nurse practitioner if your condition does not improve within 1 to 3 weeks. You may get drowsy or dizzy when you first start taking the medicine or change doses. Do not drive, use machinery, or do anything that may be dangerous until you know how the medicine affects you. Stand or sit up slowly. Your mouth may get dry. Drinking water, chewing sugarless gum, or sucking on hard candy may help. Tramadol Hydrochloride Oral tablet What is this medicine? TRAMADOL (TRA ma dole) is a pain reliever. It is used to treat moderate to severe pain in adults. How should I use this medicine? Take this medicine by mouth with a full glass of water. Follow the directions on the prescription label. If the medicine upsets your stomach, take it with food or milk. Do not take more medicine than you are told to take. Talk to your electronics assembler and tester regarding the use of this medicine in children. Special care may be needed. What side effects may I notice from receiving this medicine? Side effects that you should report to your doctor or health post acute care nurse practitioner as soon as possible: allergic reactions like skin rash, itching or hives, swelling of the face, lips, or tongue breathing difficulties, wheezing confusion itching light headedness or fainting spells redness, blistering, peeling or loosening of the skin, including inside the mouth seizures Side effects that usually do not require medical attention (report to your doctor or health post acute care nurse practitioner if they continue or are bothersome): constipation dizziness drowsiness headache nausea, vomiting What may interact with this medicine? Do not take this medicine with any of the following medications: MAOIs like Carbex, Eldepryl, Marplan, Nardil, and Parnate This medicine may also interact with the following medications: alcohol or medicines that contain alcohol antihistamines benzodiazepines bupropion carbamazepine or oxcarbazepine clozapine cyclobenzaprine digoxin furazolidone linezolid medicines for depression, anxiety, or psychotic disturbances medicines for migraine headache like almotriptan, eletriptan, frovatriptan, naratriptan, rizatriptan, sumatriptan, zolmitriptan medicines for pain like pentazocine, buprenorphine, butorphanol, meperidine, nalbuphine, and propoxyphene medicines for sleep muscle relaxants naltrexone phenobarbital phenothiazines like perphenazine, thioridazine, chlorpromazine, mesoridazine, fluphenazine, prochlorperazine, promazine, and trifluoperazine procarbazine warfarin What if I miss a dose? If you miss a dose, take it as soon as you can. If it is almost time for your next dose, take only that dose. Do not take double or extra doses. Where should I keep my medicine? Keep out of the reach of children. Store at room temperature between 15 and 30 degrees C (59 and 86 degrees F). Keep container tightly closed. Throw away any unused medicine after the expiration date. What should I tell my health care provider before I take this medicine? They need to know if you have any of these conditions: brain tumor depression drug abuse or addiction head injury if you frequently drink alcohol containing drinks kidney disease or trouble passing urine liver disease lung disease, asthma, or breathing problems seizures or epilepsy suicidal thoughts, plans, or attempt; a previous suicide attempt by you or a family member an unusual or allergic reaction to tramadol, codeine, other medicines, foods, dyes, or preservatives or trying to get breast-feeding What should I watch for while using this medicine? Tell your doctor or health post acute care nurse practitioner if your pain does not go away, if it gets worse, or if you have new or a different type of pain. You may develop tolerance to the medicine. Tolerance means that you will need a higher dose of the medicine for pain relief. Tolerance is normal and is expected if you take this medicine for a long time. Do not suddenly stop taking your medicine because you may develop a severe reaction. Your body becomes used to the medicine. This does NOT mean you are addicted. Addiction is a behavior related to getting and using a drug for a non-medical reason. If you have pain, you have a medical reason to take pain medicine. Your doctor will tell you how much medicine to take. If your doctor wants you to stop the medicine, the dose will be slowly lowered over time to avoid any side effects. You may get drowsy or dizzy. Do not drive, use machinery, or do anything that needs mental alertness until you know how this medicine affects you. Do not stand or sit up quickly, especially if you are an older patient. This reduces the risk of dizzy or fainting spells. Alcohol can increase or decrease the effects of this medicine. Avoid alcoholic drinks. You may have constipation. Try to have a bowel movement at least every 2 to 3 days. If you do not have a bowel movement for 3 days, call your doctor or health post acute care nurse practitioner. Your mouth may get dry. Chewing sugarless gum or sucking hard candy, and drinking plenty of water may help. Contact your doctor if the problem does not go away or is severe. You have been given the following additional information: Back Pain (Acute Or Chronic) Cyclobenzaprine Hydrochloride Oral tablet Tramadol Hydrochloride Oral tablet (Electronically signed by Allegra Griffith A.R.N.P. 03/25/2017 20:36)
== END 2017-03-25 19:05 | disposition home or self-care (01) ==
LOC: ED SRH 15:15
DX: S39.012A Strain of muscle, fascia and tendon of lower back, initial encounter (principal); I10 Essential (primary) hypertension; Z79.899 Other long term (current) drug therapy; Z88.8 Allergy status to other drugs, medicaments and biological substances

== ENCOUNTER 2017-03-29 14:46 | Emergency (ER) | payer OTHER ==
--- NOTE | 2017-03-29 15:37 | ED ORDER SUMMARY ---
..... Patient: KINA JEONG JR OrderSheet [facility] VisitID: [id number] [address] [place] [address] 32y, M Registration Date/Time: 03/29/2017 ORDER SHEET Weight: 103.4 kg (stated) Allergies: Methocarbamol GENERAL ORDERS: MEDICATION ORDERS: Benadryl IM 50 mg (NOW) (15:30 03/29/2017 HBivens A.R.N.P.) (16:01 omanelli R.N.) Decadron IM 8 mg (NOW) (15:31 03/29/2017 HBivens A.R.N.P.) (16:02 Angelika R.N.) Pepcid PO 40 mg (NOW) (15:31 03/29/2017 HBivens A.R.N.P.) (16:00 omanlloyd R.N.) IV FLUIDS: ORDER SHEET NOTES: [Electronically signed by Allegra Griffith A.R.N.PReed (17:11 03/29/2017)] [Electronically signed by Juan Francisco Lin R.N. (17:03/29/2017)] [Electronically locked/signed by Juan Francisco Lin R.N. (17:03/29/2017)]
--- NOTE | 2017-03-29 15:37 | ED ORDER SUMMARY ---
..... Patient: KINA JEONG JR OrderSheet [facility] VisitID: [id number] [address] [place] [address] 32y, M Registration Date/Time: 03/29/2017 ORDER SHEET Weight: 103.4 kg (stated) Allergies: Methocarbamol GENERAL ORDERS: MEDICATION ORDERS: Benadryl IM 50 mg (NOW) (15:30 03/29/2017 HBivens A.R.N.P.) (16:01 omanelli R.N.) Decadron IM 8 mg (NOW) (15:31 03/29/2017 HBivens A.R.N.P.) (16:02 Angelika R.N.) Pepcid PO 40 mg (NOW) (15:31 03/29/2017 HBivens A.R.N.P.) (16:00 omanlloyd R.N.) IV FLUIDS: ORDER SHEET NOTES: [Electronically signed by Allegra Griffith A.R.N.PReed (17:11 03/29/2017)] [Electronically signed by Juan Francisco Lin R.N. (17:03/29/2017)] [Electronically locked/signed by Juan Francisco Lin R.N. (17:03/29/2017)]
--- NOTE | 2017-03-29 15:37 | ED NURSING NOTES ---
Clinical Report - Nurses [facility] [address] [place] [address] 03/29/2017 14:48 Patient: KINA JEONG JR TRIAGE Triage time 14:56 Raz 2016. Acuity: LEVEL 4. Chief Complaint: SKIN RASH and . pt seen here on 03/25/2017 for low back pain, pt reports was given a "pain shot" the next day pt states "I started getting these little bumps around my neck" which per pt has increased since and now is on trunk, back, head and working down legs. pt states "it's itchy" pt taking "indoor/outdoor" med with minimal relief. Alert. No acute distress. SEPSIS SCREEN: Sepsis Screen. Negative (no infection suspected/documented). --15:03 Juan Francisco Lin R.N. 14:55 03/29/17. BP: 122/79. HR: 82. RR: 15. O2 saturation: 98%. Temp: 98.1 F. Pain level now: 01/16. --15:03 Juan Francisco Lin R.N. Weight: 103.4 kg stated. Height/Length: 70 inches Per Patient. BMI: 32.7. --15:00 Juan Francisco Lin R.N. Medications CHOLESTEROL MED. Flexeril 10mg q 8 hrs . Gabepentin 800mg qid . --14:59 Juan Francisco Lin R.N. Flomax Oral. --14:59 Juan Francisco Lin R.N. Allergies Methocarbamol. --14:59 Juan Francisco Lin R.N. History Arrived by private vehicle. Historian: patient. Primary physician (Dr Gaston). This is a new problem. ( 017). It is described as itchy. No recent medication, food exposure or insect bite. Not burning or painful. 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 PAST MEDICAL HX: Immunizations: up-to-date. SOCIAL HX: Former smoker. Occasional alcohol use. No drug use. No infectious disease exposure. ABUSE ASSESSMENT: No report of abuse. SELF HARM ASSESSMENT: A self harm assessment was performed. The patient answered "no" to the question "Do you have thoughts of harming or killing yourself?". FALL RISK ASSESSMENT: Fall risk assessment completed. No fall risk identified. NUTRITIONAL RISK ASSESSMENT: The nutritional risk assessment revealed no deficiencies. FUNCTIONAL ASSESSMENT: Functional assessment: no impairments noted. LEARNING NEEDS ASSESSMENT: The learning needs assessment revealed no barriers. SKIN INTEGRITY ASSESSMENT: Skin integrity risk assessment completed. No skin integrity risk identified. --15:03 Juan Francisco Lin R.N. PROBLEMS: Lumbar Strain. Hypertension. Knee Injury. Knee Effusion. Muscle Strain, Lower Extremity. Back Pain. Burn. Tetanus Status. --14:59 Juan Francisco Lin R.N. Facial Cellulitis [RuleOut]. Cellulitis [RuleOut]. --14:59 Juan Francisco Lin R.N. ADDITIONAL SURGERIES: Back Surgery. Dental Surgery. --14:59 Juan Francisco Lin R.N. Interventions ID band on patient. --15:03 Juan Francisco Lin R.N. PHYSICAL ASSESSMENT Ambulatory to room. Patient gowned. GENERAL / NEURO / PSYCH: Alert. The patient does not appear to be in acute distress. Oriented X 4. RESPIRATORY: Respirations not labored. Breath sounds within normal limits. CVS: Capillary refill less than 2 seconds. SKIN: Skin is intact, warm and dry. Generalized well-demarcated skin rash present. Normal skin turgor. --15:03 Juan Francisco Lin R.N. NURSING PROGRESS NOTES Patient identifiers checked. Call light placed in reach. Side rails up x 1. Bed placed in lowest position. Brakes of bed on. Patient ready for evaluation- chart flagged. Patient waiting for evaluation. --15:04 Juan Francisco Lin R.N. 15:55 03/29/2017 Pepcid (Famotidine) PO Tablets 40 mg given. Allergies verified and confirmed 5 rights. --16:00 Ruddy Redman R.N. 15:56 03/29/2017 Benadryl (DiphenhydrAMINE HCl) IM 50 mg given. Given in the right ventral gluteus. Allergies verified, confirmed 5 rights and sedative warning given to the patient. --16:01 Ruddy Redman R.N. 15:58 03/29/2017 Decadron (Dexamethasone Sodium Phosphate) IM 8 mg given. Given in the left ventral gluteus. Allergies verified and confirmed 5 rights. --16:02 Ruddy Redman R.N. 16:14 03/29/2017 Pepcid PO Response: no adverse reaction the patient feels the same. --16:19 Juan Francisco Lin R.N. 16:14 03/29/2017 Benadryl IM Response: no adverse reaction symptoms are the same. The patient feels the same. --16:19 Juan Francisco Lin R.N. 16:15 03/29/2017 Decadron IM Response: no adverse reaction symptoms are the same. The patient feels the same. --16:20 Juan Francisco Lin R.N. DISPOSITION / DISCHARGE No learning barriers present. Discharge instructions provided and reviewed with the patient. Reviewed medication(s) side effects, dosing and course information. Prescription(s) given to the patient. Patient verbalized understanding. Written instructions provided in Greek. The patient was discharged by the physician. He was discharged home. He left the Emergency Department ambulatory and via private vehicle. Patient driving. ( pt dc home ambulatory, speaks full, long clear sentences, denies sob, dc instructions gone over with pt and pt verbalizes understanding). --16:18 Juan Francisco Lin R.N. 16:16 03/29/17. BP: 118/72. HR: 74. RR: 15. O2 saturation: 100%. Temp: deferred. Pain level now: 01/16. --16:18 Juan Francisco Lin R.N. Locked/Released at 03/29/2017 17:30 by Juan Francisco Lin R.N.
--- NOTE | 2017-03-29 15:37 | ED NURSING NOTES ---
Clinical Report - Nurses [facility] [address] [place] [address] 03/29/2017 14:48 Patient: KINA JEONG JR TRIAGE Triage time 14:56 Raz 2016. Acuity: LEVEL 4. Chief Complaint: SKIN RASH and . pt seen here on 03/25/2017 for low back pain, pt reports was given a "pain shot" the next day pt states "I started getting these little bumps around my neck" which per pt has increased since and now is on trunk, back, head and working down legs. pt states "it's itchy" pt taking "indoor/outdoor" med with minimal relief. Alert. No acute distress. SEPSIS SCREEN: Sepsis Screen. Negative (no infection suspected/documented). --15:03 Juan Francisco Lin R.N. 14:55 03/29/17. BP: 122/79. HR: 82. RR: 15. O2 saturation: 98%. Temp: 98.1 F. Pain level now: 01/16. --15:03 Juan Francisco Lin R.N. Weight: 103.4 kg stated. Height/Length: 70 inches Per Patient. BMI: 32.7. --15:00 Juan Francisco Lin R.N. Medications CHOLESTEROL MED. Flexeril 10mg q 8 hrs . Gabepentin 800mg qid . --14:59 Juan Francisco Lin R.N. Flomax Oral. --14:59 Juan Francisco Lin R.N. Allergies Methocarbamol. --14:59 Juan Francisco Lin R.N. History Arrived by private vehicle. Historian: patient. Primary physician (Dr Gaston). This is a new problem. ( 017). It is described as itchy. No recent medication, food exposure or insect bite. Not burning or painful. 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 PAST MEDICAL HX: Immunizations: up-to-date. SOCIAL HX: Former smoker. Occasional alcohol use. No drug use. No infectious disease exposure. ABUSE ASSESSMENT: No report of abuse. SELF HARM ASSESSMENT: A self harm assessment was performed. The patient answered "no" to the question "Do you have thoughts of harming or killing yourself?". FALL RISK ASSESSMENT: Fall risk assessment completed. No fall risk identified. NUTRITIONAL RISK ASSESSMENT: The nutritional risk assessment revealed no deficiencies. FUNCTIONAL ASSESSMENT: Functional assessment: no impairments noted. LEARNING NEEDS ASSESSMENT: The learning needs assessment revealed no barriers. SKIN INTEGRITY ASSESSMENT: Skin integrity risk assessment completed. No skin integrity risk identified. --15:03 Juan Francisco Lin R.N. PROBLEMS: Lumbar Strain. Hypertension. Knee Injury. Knee Effusion. Muscle Strain, Lower Extremity. Back Pain. Burn. Tetanus Status. --14:59 Juan Francisco Lin R.N. Facial Cellulitis [RuleOut]. Cellulitis [RuleOut]. --14:59 Juan Francisco Lin R.N. ADDITIONAL SURGERIES: Back Surgery. Dental Surgery. --14:59 Juan Francisco Lin R.N. Interventions ID band on patient. --15:03 Juan Francisco Lin R.N. PHYSICAL ASSESSMENT Ambulatory to room. Patient gowned. GENERAL / NEURO / PSYCH: Alert. The patient does not appear to be in acute distress. Oriented X 4. RESPIRATORY: Respirations not labored. Breath sounds within normal limits. CVS: Capillary refill less than 2 seconds. SKIN: Skin is intact, warm and dry. Generalized well-demarcated skin rash present. Normal skin turgor. --15:03 Juan Francisco Lin R.N. NURSING PROGRESS NOTES Patient identifiers checked. Call light placed in reach. Side rails up x 1. Bed placed in lowest position. Brakes of bed on. Patient ready for evaluation- chart flagged. Patient waiting for evaluation. --15:04 Juan Francisco Lin R.N. 15:55 03/29/2017 Pepcid (Famotidine) PO Tablets 40 mg given. Allergies verified and confirmed 5 rights. --16:00 Ruddy Redman R.N. 15:56 03/29/2017 Benadryl (DiphenhydrAMINE HCl) IM 50 mg given. Given in the right ventral gluteus. Allergies verified, confirmed 5 rights and sedative warning given to the patient. --16:01 Ruddy Redman R.N. 15:58 03/29/2017 Decadron (Dexamethasone Sodium Phosphate) IM 8 mg given. Given in the left ventral gluteus. Allergies verified and confirmed 5 rights. --16:02 Ruddy Redman R.N. 16:14 03/29/2017 Pepcid PO Response: no adverse reaction the patient feels the same. --16:19 Juan Francisco Lin R.N. 16:14 03/29/2017 Benadryl IM Response: no adverse reaction symptoms are the same. The patient feels the same. --16:19 Juan Francisco Lin R.N. 16:15 03/29/2017 Decadron IM Response: no adverse reaction symptoms are the same. The patient feels the same. --16:20 Juan Francisco Lin R.N. DISPOSITION / DISCHARGE No learning barriers present. Discharge instructions provided and reviewed with the patient. Reviewed medication(s) side effects, dosing and course information. Prescription(s) given to the patient. Patient verbalized understanding. Written instructions provided in [place]. The patient was discharged by the physician. He was discharged home. He left the Emergency Department ambulatory and via private vehicle. Patient driving. ( pt dc home ambulatory, speaks full, long clear sentences, denies sob, dc instructions gone over with pt and pt verbalizes understanding). --16:18 Juan Francisco Lin R.N. 16:16 03/29/17. BP: 118/72. HR: 74. RR: 15. O2 saturation: 100%. Temp: deferred. Pain level now: 01/16. --16:18 Juan Francisco Lin R.N. Locked/Released at 03/29/2017 17:30 by Juan Francisco Lin R.N.
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
--- NOTE | 2017-03-29 17:30 | ED DISCHARGE INSTRUCTIONS ---
Patient: KINA JEONG JR General Instructions [facility] VisitID: [id number] [place] [address] 32y, M Registration Date/Time: 03/29/2017 Acute hives secondary to allergy. INSTRUCTIONS Warnings: GENERAL WARNINGS: Return or contact your physician immediately if your condition worsens or changes unexpectedly, if not improving as expected, or if other problems arise. Specifically return if problem worsens. Prescription Medications: Dina 180 mg tablets: take 1 orally daily for 10 days. Dispense ten (10). No refills. Prednisone 20 mg: take 3 orally every day for 10 days. Dispense thirty (30). No refills. Pepcid 40 mg RPD: take 1 orally at bedtime for 10 days. Dispense ten (10). No refills. Follow-up: Follow up with your doctor in about three days as needed. Call for an appointment. Summary of care provided to patient. Understanding of the discharge instructions verbalized by patient. ADDITIONAL INFORMATION Hives Hives is an itchy red rash that can appear suddenly and move about your body. It goes away in one place and comes back in another. This is usually caused by something that you are allergic to such as: EATING: fruit, shellfish, chocolate, nuts, tomatoes or medicine BREATHING: pollens, animal hair/fur or mold spores Exposure to cold air, sun rays or exercise can sometimes cause an attack. Many times we cannot find a cause. Medicines can be used to reduce itching and swelling. The rash will usually fade over several days, but can sometimes last up to two weeks. Home Care: 1) Do not wear tight clothing and do not take hot baths/showers since heat can make the itching worse. 2) An ice pack (ice cubes in a plastic bag, wrapped in a towel) will reduce local areas of redness and itching. Lanacaine cream or Solarcaine spray (or other product containing "benzocaine") will reduce itching. 3) Oral Benadryl (diphenhydramine) is an antihistamine available at drug and grocery stores. Unless a prescription antihistamine was given, Benadryl may be used to reduce itching if large areas of the skin are involved. Use lower doses during the daytime and higher doses at bedtime since the drug may make you sleepy. [NOTE: Do not use Benadryl if you have glaucoma or if you are a man with trouble urinating due to an enlarged prostate.] Claritin (loratadine) is an antihistamine that causes less drowsiness and is a good alternative for daytime use. 4) If you know what you are sensitive to, avoid this substance. Future reactions could be worse than this one. Follow Up with your doctor as directed by our staff, if symptoms do not begin to improve in two days. If you have had a severe reaction, or have had several episodes of hives, then ask your doctor about allergy testing to find out what you are allergic to. Get Prompt Medical Attention if any of the following occur: -- Trouble breathing or swallowing -- New or increased swelling in the face, lips, tongue or throat -- Dizziness, weakness or fainting Food Allergy Some persons are sensitive to certain foods. Avoiding these foods is the best treatment. Symptoms of food allergy may begin within minutes up to two hours after eating. Symptoms cause nausea, vomiting, diarrhea or stomach cramps, itchy rash (hives), swelling of the eyes, lips, face or tongue, wheezing, difficulty breathing or swallowing, throat tightness, dizziness or fainting. This kind of allergy can be life-threatening, but in mild-moderate cases symptoms resolve within 6 to 24 hours. Persons with certain health conditions, such as asthma and eczema, are prone to food allergies. Foods that commonly cause an allergic reaction include milk, eggs, peanuts, tree nuts, fish or shellfish, and wheat. But be aware that any food can cause a reaction. Treatment for a severe allergic reaction (anaphylaxis) is epinephrine. A person with a severe food allergy should carry this medication for self-injection. This is available by prescription. Brands include EpiPen, Adrenaclick, and Twinject. Home Care: If symptoms were moderate to severe, rest at home for the next 24 hours. Avoid tobacco and alcohol consumption. These may worsensymptoms. If you know what foods caused your reaction today, avoid them in the future. The next reaction is likely to be worse. Let your family members, friends and personal physician know about your food allergy. Learn how to read food labels so you can check for the substance that you reacted to. If the product does not have a label, it is best to avoid it. When in restaurants, ask about ingredients. If your reaction was severe, obtain a medical alert bracelet or necklace noting your allergy. If epinephrine is prescribed, carry it at all times. Learn how to use the device. If you begin to feel the symptoms of another reaction, use the epinephrine to inject yourself right away, and call 911. Dont wait until symptoms become severe. Oral Benadryl (diphenhydramine) is an antihistamine available at drug and grocery stores. Unless a prescription antihistamine was given, Benadryl may be used to reduce itching if large areas of the skin are involved. Use lower doses during the daytime and higher doses at bedtime since the drug may make you sleepy. [NOTE: Do not use Benadryl if you have glaucoma or if you are a man with trouble urinating due to an enlarged prostate.] Follow Up with your doctor or as advised if you are not improving over the next 2 to 3 days. If you do not know what caused this reaction, skin tests and blood tests, or an elimination diet may be helpful. You may locate an career development specialist in your area by contacting: [employer] www.aaaai.org [employer] www.acaai.org Get Prompt Medical Attention if any of the following occur: Worsening of your symptoms New or worse swelling in the face, eyelids, lips, mouth, throat or tongue Trouble swallowing or breathing Dizziness, weakness or fainting Fever of 100.4F (38C) or higher, or as directed by your healthcare provider Severe constant lower right abdominal pain Persistent vomiting (unable to keep liquids down) or constant diarrhea Blood or mucus in the stool Drug Reaction: Allergic You are having an allergic reaction to a drug you have taken. This causes an itchy rash and sometimes swelling of various parts of the body. It may also cause trouble swallowing or breathing. The rash may take a few hours or up to two weeks to go away. In the future, remember to tell your doctor about your allergy to this drug so that drugs of this type won't be used again. Home Care: 1) Throw the drug away and do not take it again. The next reaction may be much worse. 2) Avoid tight clothing and anything that heats up your skin (hot showers/baths, direct sunlight) since heat will make itching worse. 3) An ice pack (ice cubes in a plastic bag, wrapped in a towel) will relieve local areas of intense itching and redness. Lanacaine cream or Solarcaine spray (or other product containing "benzocaine") will reduce the itching. 4) Avoid scratching which may worsen the reaction, damage your skin and lead to an infection. 5) Oral Benadryl (diphenhydramine) is an antihistamine available at drug and grocery stores. Unless a prescription antihistamine was given, Benadryl may be used to reduce itching if large areas of the skin are involved. Use lower doses during the daytime and higher doses at bedtime since the drug may make you sleepy. [NOTE: Do not use Benadryl if you have glaucoma or if you are a man with trouble urinating due to an enlarged prostate.] Claritin (loratadine) is an antihistamine that causes less drowsiness and is a good alternative for daytime use. Follow Up with your doctor or this facility in the next two days if your symptoms do not continue to improve. Get Prompt Medical Attention if any of the following occur: -- Wheezing, shortness of breath or difficulty swallowing -- Increased swelling in the face, eyelids, mouth, lips, tongue or throat -- Dizziness, weakness or fainting Allergic Reaction,Generalized [Other] You are having an allergic reaction. This may cause an itchy rash, dizziness, fainting, trouble breathing or swallowing, and swelling of the face or other parts of the body. This can be caused by exposure to something in your surroundings that you have become sensitive to. This could be due to medicine or food. This could also be due to something you put on your skin or in your hair or something in the air. Often it is not possible to find out exactly what has caused your reaction. The goal of today's treatment is to relieve symptoms. The rash will usually fade over several days, but can sometimes last up to two weeks. Home Care: 1) If you know what you are allergic to, avoid it because future reactions could be worse than this one. 2) Avoid tight clothing and anything that heats up your skin (hot showers/baths, direct sunlight) since heat will make itching worse. 3) An ice pack will relieve local areas of intense itching and redness. Lanacaine cream or Solarcaine spray (or other product containing "benzocaine", available without a prescription) will reduce the itching. 4) Oral Benadryl (diphenhydramine) is an antihistamine available at drug and grocery stores. Unless a prescription antihistamine was given, Benadryl may be used to reduce itching if large areas of the skin are involved. Use lower doses during the daytime and higher doses at bedtime since the drug may make you sleepy. [NOTE: Do not use Benadryl if you have glaucoma or if you are a man with trouble urinating due to an enlarged prostate.] Claritin (loratidine) is an antihistamine that causes less drowsiness and is a good alternative for daytime use. Follow Up Follow Up with your doctor or this facility in two days if your symptoms do not continue to improve. If you had a severe reaction today, or if you have had several mild-moderate allergic reactions in the past, ask your doctor about allergy testing to find out what you are allergic to. If your reaction included dizziness, fainting or trouble breathing or swallowing, ask your doctor about carrying an Allergy Kit (injectable epinephrine) for home use. Get Prompt Medical Attention if any of the following occur: -- Trouble breathing or swallowing -- New or worse swelling in the face, eyelids, lips, mouth, tongue or throat -- Dizziness, weakness or fainting Fexofenadine Hydrochloride Oral tablet What is this medicine? FEXOFENADINE (fex oh FEN a kim) is an antihistamine. This medicine is used to treat or prevent symptoms of allergies. It is also used to help reduce itchy skin rash and hives. How should I use this medicine? Take this medicine by mouth with a full glass of water. Follow the directions on the prescription label. You may take this medicine with food or on an empty stomach. Take your medicine at regular intervals. Do not take it more often than directed. You may need to take this medicine for several days before your symptoms improve. Talk to your expander machine operator regarding the use of this medicine in children. While this drug may be prescribed for children as young as 6 years old for selected conditions, precautions do apply. What side effects may I notice from receiving this medicine? Side effects that you should report to your doctor or health personal care home administrator as soon as possible: allergic reactions like skin rash, itching or hives, swelling of the face, lips, or tongue breathing problems chest pain fast heartbeat infection or fever Side effects that usually do not require medical attention (report to your doctor or health personal care home administrator if they continue or are bothersome): cough drowsiness dry or irritated nose, mouth, or throat headache menstrual changes pain stomach upset, nausea What may interact with this medicine? antacids erythromycin grapefruit, apple, or orange juice ketoconazole magnesium-containing products What if I miss a dose? If you miss a dose, take it as soon as you can. If it is almost time for your next dose, take only that dose. Do not take double or extra doses. Where should I keep my medicine? Keep out of the reach of children. Store at room temperature between 20 and 25 degrees C (68 and 77degrees F). Protect from moisture. Throw away any unused medicine after the expiration date. What should I tell my health care provider before I take this medicine? They need to know if you have any of these conditions: kidney disease an unusual or allergic reaction to fexofenadine, terfenadine, other medicines, foods, dyes, or preservatives or trying to get breast-feeding What should I watch for while using this medicine? Visit your doctor or health personal care home administrator for regular checks on your health. Tell your doctor or healthcare professional if your symptoms do not start to get better or if they get worse. Prednisone Oral tablet What is this medicine? PREDNISONE (PRED ni sone) is a corticosteroid. It is commonly used to treat inflammation of the skin, joints, lungs, and other organs. Common conditions treated include asthma, allergies, and arthritis. It is also used for other conditions, such as blood disorders and diseases of the adrenal glands. How should I use this medicine? Take this medicine by mouth with a glass of water. Follow the directions on the prescription label. Take this medicine with food. If you are taking this medicine once a day, take it in the morning. Do not take more medicine than you are told to take. Do not suddenly stop taking your medicine because you may develop a severe reaction. Your doctor will tell you how much medicine to take. If your doctor wants you to stop the medicine, the dose may be slowly lowered over time to avoid any side effects. Talk to your expander machine operator regarding the use of this medicine in children. Special care may be needed. What side effects may I notice from receiving this medicine? Side effects that you should report to your doctor or health personal care home administrator as soon as possible: allergic reactions like skin rash, itching or hives, swelling of the face, lips, or tongue changes in emotions or moods changes in vision depressed mood eye pain fever or chills, cough, sore throat, pain or difficulty passing urine increased thirst swelling of ankles, feet Side effects that usually do not require medical attention (report to your doctor or health personal care home administrator if they continue or are bothersome): confusion, excitement, restlessness headache nausea, vomiting skin problems, acne, thin and shiny skin trouble sleeping weight gain What may interact with this medicine? Do not take this medicine with any of the following medications: metyrapone mifepristone This medicine may also interact with the following medications: aminoglutethimide amphotericin B aspirin and aspirin-like medicines barbiturates certain medicines for diabetes, like glipizide or glyburide cholestyramine cholinesterase inhibitors cyclosporine digoxin diuretics ephedrine female hormones, like estrogens and control pills isoniazid ketoconazole NSAIDS, medicines for pain and inflammation, like ibuprofen or naproxen phenytoin rifampin toxoids vaccines warfarin What if I miss a dose? If you miss a dose, take it as soon as you can. If it is almost time for your next dose, talk to your doctor or health personal care home administrator. You may need to miss a dose or take an extra dose. Do not take double or extra doses without advice. Where should I keep my medicine? Keep out of the reach of children. Store at room temperature between 15 and 30 degrees C (59 and 86 degrees F). Protect from light. Keep container tightly closed. Throw away any unused medicine after the expiration date. What should I tell my health care provider before I take this medicine? They need to know if you have any of these conditions: Grenola's syndrome diabetes glaucoma heart disease high blood pressure infection (especially a virus infection such as chickenpox, cold sores, or herpes) kidney disease liver disease mental illness myasthenia gravis osteoporosis seizures stomach or intestine problems thyroid disease an unusual or allergic reaction to lactose, prednisone, other medicines, foods, dyes, or preservatives or trying to get breast-feeding What should I watch for while using this medicine? Visit your doctor or health personal care home administrator for regular checks on your progress. If you are taking this medicine over a prolonged period, carry an identification card with your name and address, the type and dose of your medicine, and your doctor's name and address. This medicine may increase your risk of getting an infection. Tell your doctor or health personal care home administrator if you are around anyone with measles or chickenpox, or if you develop sores or blisters that do not heal properly. If you are going to have surgery, tell your doctor or health personal care home administrator that you have taken this medicine within the last twelve months. Ask your doctor or health personal care home administrator about your diet. You may need to lower the amount of salt you eat. This medicine may affect blood sugar levels. If you have diabetes, check with your doctor or health personal care home administrator before you change your diet or the dose of your diabetic medicine. Famotidine Oral tablet What is this medicine? FAMOTIDINE (alvaro alvarez) is a type of antihistamine that blocks the release of stomach acid. It is used to treat stomach or intestinal ulcers. It can also relieve heartburn from acid reflux. How should I use this medicine? Take this medicine by mouth with a glass of water. Follow the directions on the prescription label. If you only take this medicine once a day, take it at bedtime. Take your doses at regular intervals. Do not take your medicine more often than directed. Talk to your expander machine operator regarding the use of this medicine in children. Special care may be needed. What side effects may I notice from receiving this medicine? Side effects that you should report to your doctor or health personal care home administrator as soon as possible: agitation, nervousness confusion hallucinations skin rash, itching Side effects that usually do not require medical attention (report to your doctor or health personal care home administrator if they continue or are bothersome): constipation diarrhea dizziness headache What may interact with this medicine? delavirdine itraconazole ketoconazole What if I miss a dose? If you miss a dose, take it as soon as you can. If it is almost time for your next dose, take only that dose. Do not take double or extra doses. Where should I keep my medicine? Keep out of the reach of children. Store at room temperature between 15 and 30 degrees C (59 and 86 degrees F). Do not freeze. Throw away any unused medicine after the expiration date. What should I tell my health care provider before I take this medicine? They need to know if you have any of these conditions: kidney or liver disease trouble swallowing an unusual or allergic reaction to famotidine, other medicines, foods, dyes, or preservatives or trying to get breast-feeding What should I watch for while using this medicine? Tell your doctor or health personal care home administrator if your condition does not start to get better or if it gets worse. Finish the full course of tablets prescribed, even if you feel better. Do not take with aspirin, ibuprofen or other antiinflammatory medicines. These can make your condition worse. Do not smoke cigarettes or drink alcohol. These cause irritation in your stomach and can increase the time it will take for ulcers to heal. If you get black, tarry stools or vomit up what looks like coffee grounds, call your doctor or health personal care home administrator at once. You may have a bleeding ulcer. You have been given the following additional information: Hives Food Allergy Allergic Reaction, Drug Allergic Reaction, Other (General) Fexofenadine Hydrochloride Oral tablet Prednisone Oral tablet Famotidine Oral tablet (Electronically signed by Allegra Griffith A.R.N.P. 03/29/2017 17:11)
--- NOTE | 2017-03-29 17:30 | ED MED RECONCILIATION SUMMARY ---
Patient: KINA JEONG JR Medication Reconciliation Report [facility] VisitID: [id number] [place] [address] 32y, M Registration Date/Time: 03/29/2017 Weight: 103.4 kg Height/Length: 70 in. BMI: 32.7 ALLERGIES: Methocarbamol The patient's Home Medications are listed below: THE FOLLOWING MEDICATIONS NEED TO BE RECONCILED: CHOLESTEROL MED Flexeril 10mg q 8 hrs Flomax Oral Gabepentin 800mg qid The source(s) of the original Home Medication information: Not obtained. The following Medications were given to the patient in the Emergency Department: Pepcid [PO] PO 40 mg, administered: 03/29/2017 3:55:00 PM Benadryl [IM] IM 50 mg, administered: 03/29/2017 3:56:00 PM Decadron [IM] IM 8 mg, administered: 03/29/2017 3:58:00 PM The following Medications were prescribed to the patient: Dina 180 mg tablets: take 1 orally daily for 10 days. Dispense ten (10). No refills. -- Allegra Griffith A.R.N.P. Prednisone 20 mg: take 3 orally every day for 10 days. Dispense thirty (30). No refills. -- Allegra Griffith A.R.N.P. Pepcid 40 mg RPD: take 1 orally at bedtime for 10 days. Dispense ten (10). No refills. -- Allegra Griffith A.R.N.P.
--- NOTE | 2017-03-29 17:30 | ED MAR SUMMARY ---
..... Medication Administration Record [facility] [address] [place] [address] Patient: KINA JEONG Visit ID: [id number] 32y, M Weight: 103.4 kg Height/Length: 70 in BMI: 32.7 ALLERGIES: Methocarbamol Given 15:55 03/29/2017 Ruddy Redman RReedN. Medication Administered: PEPCID [PO] (FAMOTIDINE), Dose: 40 mg Tablets PO. Medication Ordered: Pepcid PO 40 mg (NOW). Given 15:56 03/29/2017 Rudyd Redman R.N. Medication Administered: BENADRYL [IM] (DIPHENHYDRAMINE HCL), Dose: 50 mg IM. Medication Ordered: Benadryl IM 50 mg (NOW). Given 15:58 03/29/2017 Ruddy Redman, R.N. Medication Administered: DECADRON [IM] (DEXAMETHASONE SODIUM PHOSPHATE), Dose: 8 mg IM. Medication Ordered: Decadron IM 8 mg (NOW).
--- NOTE | 2017-03-29 17:30 | ED DISCHARGE INSTRUCTIONS ---
Patient: KINA JEONG JR General Instructions [facility] VisitID: [id number] [place] [address] 32y, M Registration Date/Time: 03/29/2017 Acute hives secondary to allergy. INSTRUCTIONS Warnings: GENERAL WARNINGS: Return or contact your physician immediately if your condition worsens or changes unexpectedly, if not improving as expected, or if other problems arise. Specifically return if problem worsens. Prescription Medications: Dina 180 mg tablets: take 1 orally daily for 10 days. Dispense ten (10). No refills. Prednisone 20 mg: take 3 orally every day for 10 days. Dispense thirty (30). No refills. Pepcid 40 mg RPD: take 1 orally at bedtime for 10 days. Dispense ten (10). No refills. Follow-up: Follow up with your doctor in about three days as needed. Call for an appointment. Summary of care provided to patient. Understanding of the discharge instructions verbalized by patient. ADDITIONAL INFORMATION Hives Hives is an itchy red rash that can appear suddenly and move about your body. It goes away in one place and comes back in another. This is usually caused by something that you are allergic to such as: EATING: fruit, shellfish, chocolate, nuts, tomatoes or medicine BREATHING: pollens, animal hair/fur or mold spores Exposure to cold air, sun rays or exercise can sometimes cause an attack. Many times we cannot find a cause. Medicines can be used to reduce itching and swelling. The rash will usually fade over several days, but can sometimes last up to two weeks. Home Care: 1) Do not wear tight clothing and do not take hot baths/showers since heat can make the itching worse. 2) An ice pack (ice cubes in a plastic bag, wrapped in a towel) will reduce local areas of redness and itching. Lanacaine cream or Solarcaine spray (or other product containing "benzocaine") will reduce itching. 3) Oral Benadryl (diphenhydramine) is an antihistamine available at drug and grocery stores. Unless a prescription antihistamine was given, Benadryl may be used to reduce itching if large areas of the skin are involved. Use lower doses during the daytime and higher doses at bedtime since the drug may make you sleepy. [NOTE: Do not use Benadryl if you have glaucoma or if you are a man with trouble urinating due to an enlarged prostate.] Claritin (loratadine) is an antihistamine that causes less drowsiness and is a good alternative for daytime use. 4) If you know what you are sensitive to, avoid this substance. Future reactions could be worse than this one. Follow Up with your doctor as directed by our staff, if symptoms do not begin to improve in two days. If you have had a severe reaction, or have had several episodes of hives, then ask your doctor about allergy testing to find out what you are allergic to. Get Prompt Medical Attention if any of the following occur: -- Trouble breathing or swallowing -- New or increased swelling in the face, lips, tongue or throat -- Dizziness, weakness or fainting Food Allergy Some persons are sensitive to certain foods. Avoiding these foods is the best treatment. Symptoms of food allergy may begin within minutes up to two hours after eating. Symptoms cause nausea, vomiting, diarrhea or stomach cramps, itchy rash (hives), swelling of the eyes, lips, face or tongue, wheezing, difficulty breathing or swallowing, throat tightness, dizziness or fainting. This kind of allergy can be life-threatening, but in mild-moderate cases symptoms resolve within 6 to 24 hours. Persons with certain health conditions, such as asthma and eczema, are prone to food allergies. Foods that commonly cause an allergic reaction include milk, eggs, peanuts, tree nuts, fish or shellfish, and wheat. But be aware that any food can cause a reaction. Treatment for a severe allergic reaction (anaphylaxis) is epinephrine. A person with a severe food allergy should carry this medication for self-injection. This is available by prescription. Brands include EpiPen, Adrenaclick, and Twinject. Home Care: If symptoms were moderate to severe, rest at home for the next 24 hours. Avoid tobacco and alcohol consumption. These may worsensymptoms. If you know what foods caused your reaction today, avoid them in the future. The next reaction is likely to be worse. Let your family members, friends and personal physician know about your food allergy. Learn how to read food labels so you can check for the substance that you reacted to. If the product does not have a label, it is best to avoid it. When in restaurants, ask about ingredients. If your reaction was severe, obtain a medical alert bracelet or necklace noting your allergy. If epinephrine is prescribed, carry it at all times. Learn how to use the device. If you begin to feel the symptoms of another reaction, use the epinephrine to inject yourself right away, and call 911. Dont wait until symptoms become severe. Oral Benadryl (diphenhydramine) is an antihistamine available at drug and grocery stores. Unless a prescription antihistamine was given, Benadryl may be used to reduce itching if large areas of the skin are involved. Use lower doses during the daytime and higher doses at bedtime since the drug may make you sleepy. [NOTE: Do not use Benadryl if you have glaucoma or if you are a man with trouble urinating due to an enlarged prostate.] Follow Up with your doctor or as advised if you are not improving over the next 2 to 3 days. If you do not know what caused this reaction, skin tests and blood tests, or an elimination diet may be helpful. You may locate an ear nose and throat specialist in your area by contacting: [employer] www.aaaai.[email or web address] [employer] [email or web address].[email or web address] Get Prompt Medical Attention if any of the following occur: Worsening of your symptoms New or worse swelling in the face, eyelids, lips, mouth, throat or tongue Trouble swallowing or breathing Dizziness, weakness or fainting Fever of 100.4F (38C) or higher, or as directed by your healthcare provider Severe constant lower right abdominal pain Persistent vomiting (unable to keep liquids down) or constant diarrhea Blood or mucus in the stool Drug Reaction: Allergic You are having an allergic reaction to a drug you have taken. This causes an itchy rash and sometimes swelling of various parts of the body. It may also cause trouble swallowing or breathing. The rash may take a few hours or up to two weeks to go away. In the future, remember to tell your doctor about your allergy to this drug so that drugs of this type won't be used again. Home Care: 1) Throw the drug away and do not take it again. The next reaction may be much worse. 2) Avoid tight clothing and anything that heats up your skin (hot showers/baths, direct sunlight) since heat will make itching worse. 3) An ice pack (ice cubes in a plastic bag, wrapped in a towel) will relieve local areas of intense itching and redness. Lanacaine cream or Solarcaine spray (or other product containing "benzocaine") will reduce the itching. 4) Avoid scratching which may worsen the reaction, damage your skin and lead to an infection. 5) Oral Benadryl (diphenhydramine) is an antihistamine available at drug and grocery stores. Unless a prescription antihistamine was given, Benadryl may be used to reduce itching if large areas of the skin are involved. Use lower doses during the daytime and higher doses at bedtime since the drug may make you sleepy. [NOTE: Do not use Benadryl if you have glaucoma or if you are a man with trouble urinating due to an enlarged prostate.] Claritin (loratadine) is an antihistamine that causes less drowsiness and is a good alternative for daytime use. Follow Up with your doctor or this facility in the next two days if your symptoms do not continue to improve. Get Prompt Medical Attention if any of the following occur: -- Wheezing, shortness of breath or difficulty swallowing -- Increased swelling in the face, eyelids, mouth, lips, tongue or throat -- Dizziness, weakness or fainting Allergic Reaction,Generalized [Other] You are having an allergic reaction. This may cause an itchy rash, dizziness, fainting, trouble breathing or swallowing, and swelling of the face or other parts of the body. This can be caused by exposure to something in your surroundings that you have become sensitive to. This could be due to medicine or food. This could also be due to something you put on your skin or in your hair or something in the air. Often it is not possible to find out exactly what has caused your reaction. The goal of today's treatment is to relieve symptoms. The rash will usually fade over several days, but can sometimes last up to two weeks. Home Care: 1) If you know what you are allergic to, avoid it because future reactions could be worse than this one. 2) Avoid tight clothing and anything that heats up your skin (hot showers/baths, direct sunlight) since heat will make itching worse. 3) An ice pack will relieve local areas of intense itching and redness. Lanacaine cream or Solarcaine spray (or other product containing "benzocaine", available without a prescription) will reduce the itching. 4) Oral Benadryl (diphenhydramine) is an antihistamine available at drug and grocery stores. Unless a prescription antihistamine was given, Benadryl may be used to reduce itching if large areas of the skin are involved. Use lower doses during the daytime and higher doses at bedtime since the drug may make you sleepy. [NOTE: Do not use Benadryl if you have glaucoma or if you are a man with trouble urinating due to an enlarged prostate.] Claritin (loratidine) is an antihistamine that causes less drowsiness and is a good alternative for daytime use. Follow Up Follow Up with your doctor or this facility in two days if your symptoms do not continue to improve. If you had a severe reaction today, or if you have had several mild-moderate allergic reactions in the past, ask your doctor about allergy testing to find out what you are allergic to. If your reaction included dizziness, fainting or trouble breathing or swallowing, ask your doctor about carrying an Allergy Kit (injectable epinephrine) for home use. Get Prompt Medical Attention if any of the following occur: -- Trouble breathing or swallowing -- New or worse swelling in the face, eyelids, lips, mouth, tongue or throat -- Dizziness, weakness or fainting Fexofenadine Hydrochloride Oral tablet What is this medicine? FEXOFENADINE (fex oh FEN a kim) is an antihistamine. This medicine is used to treat or prevent symptoms of allergies. It is also used to help reduce itchy skin rash and hives. How should I use this medicine? Take this medicine by mouth with a full glass of water. Follow the directions on the prescription label. You may take this medicine with food or on an empty stomach. Take your medicine at regular intervals. Do not take it more often than directed. You may need to take this medicine for several days before your symptoms improve. Talk to your township supervisor regarding the use of this medicine in children. While this drug may be prescribed for children as young as 6 years old for selected conditions, precautions do apply. What side effects may I notice from receiving this medicine? Side effects that you should report to your doctor or health children's zoo caretaker as soon as possible: allergic reactions like skin rash, itching or hives, swelling of the face, lips, or tongue breathing problems chest pain fast heartbeat infection or fever Side effects that usually do not require medical attention (report to your doctor or health children's zoo caretaker if they continue or are bothersome): cough drowsiness dry or irritated nose, mouth, or throat headache menstrual changes pain stomach upset, nausea What may interact with this medicine? antacids erythromycin grapefruit, apple, or orange juice ketoconazole magnesium-containing products What if I miss a dose? If you miss a dose, take it as soon as you can. If it is almost time for your next dose, take only that dose. Do not take double or extra doses. Where should I keep my medicine? Keep out of the reach of children. Store at room temperature between 20 and 25 degrees C (68 and 77degrees F). Protect from moisture. Throw away any unused medicine after the expiration date. What should I tell my health care provider before I take this medicine? They need to know if you have any of these conditions: kidney disease an unusual or allergic reaction to fexofenadine, terfenadine, other medicines, foods, dyes, or preservatives or trying to get breast-feeding What should I watch for while using this medicine? Visit your doctor or health children's zoo caretaker for regular checks on your health. Tell your doctor or healthcare professional if your symptoms do not start to get better or if they get worse. Prednisone Oral tablet What is this medicine? PREDNISONE (PRED ni sone) is a corticosteroid. It is commonly used to treat inflammation of the skin, joints, lungs, and other organs. Common conditions treated include asthma, allergies, and arthritis. It is also used for other conditions, such as blood disorders and diseases of the adrenal glands. How should I use this medicine? Take this medicine by mouth with a glass of water. Follow the directions on the prescription label. Take this medicine with food. If you are taking this medicine once a day, take it in the morning. Do not take more medicine than you are told to take. Do not suddenly stop taking your medicine because you may develop a severe reaction. Your doctor will tell you how much medicine to take. If your doctor wants you to stop the medicine, the dose may be slowly lowered over time to avoid any side effects. Talk to your township supervisor regarding the use of this medicine in children. Special care may be needed. What side effects may I notice from receiving this medicine? Side effects that you should report to your doctor or health children's zoo caretaker as soon as possible: allergic reactions like skin rash, itching or hives, swelling of the face, lips, or tongue changes in emotions or moods changes in vision depressed mood eye pain fever or chills, cough, sore throat, pain or difficulty passing urine increased thirst swelling of ankles, feet Side effects that usually do not require medical attention (report to your doctor or health children's zoo caretaker if they continue or are bothersome): confusion, excitement, restlessness headache nausea, vomiting skin problems, acne, thin and shiny skin trouble sleeping weight gain What may interact with this medicine? Do not take this medicine with any of the following medications: metyrapone mifepristone This medicine may also interact with the following medications: aminoglutethimide amphotericin B aspirin and aspirin-like medicines barbiturates certain medicines for diabetes, like glipizide or glyburide cholestyramine cholinesterase inhibitors cyclosporine digoxin diuretics ephedrine female hormones, like estrogens and control pills isoniazid ketoconazole NSAIDS, medicines for pain and inflammation, like ibuprofen or naproxen phenytoin rifampin toxoids vaccines warfarin What if I miss a dose? If you miss a dose, take it as soon as you can. If it is almost time for your next dose, talk to your doctor or health children's zoo caretaker. You may need to miss a dose or take an extra dose. Do not take double or extra doses without advice. Where should I keep my medicine? Keep out of the reach of children. Store at room temperature between 15 and 30 degrees C (59 and 86 degrees F). Protect from light. Keep container tightly closed. Throw away any unused medicine after the expiration date. What should I tell my health care provider before I take this medicine? They need to know if you have any of these conditions: [place]'s syndrome diabetes glaucoma heart disease high blood pressure infection (especially a virus infection such as chickenpox, cold sores, or herpes) kidney disease liver disease mental illness myasthenia gravis osteoporosis seizures stomach or intestine problems thyroid disease an unusual or allergic reaction to lactose, prednisone, other medicines, foods, dyes, or preservatives or trying to get breast-feeding What should I watch for while using this medicine? Visit your doctor or health children's zoo caretaker for regular checks on your progress. If you are taking this medicine over a prolonged period, carry an identification card with your name and address, the type and dose of your medicine, and your doctor's name and address. This medicine may increase your risk of getting an infection. Tell your doctor or health children's zoo caretaker if you are around anyone with measles or chickenpox, or if you develop sores or blisters that do not heal properly. If you are going to have surgery, tell your doctor or health children's zoo caretaker that you have taken this medicine within the last twelve months. Ask your doctor or health children's zoo caretaker about your diet. You may need to lower the amount of salt you eat. This medicine may affect blood sugar levels. If you have diabetes, check with your doctor or health children's zoo caretaker before you change your diet or the dose of your diabetic medicine. Famotidine Oral tablet What is this medicine? FAMOTIDINE (avlaro alvarez) is a type of antihistamine that blocks the release of stomach acid. It is used to treat stomach or intestinal ulcers. It can also relieve heartburn from acid reflux. How should I use this medicine? Take this medicine by mouth with a glass of water. Follow the directions on the prescription label. If you only take this medicine once a day, take it at bedtime. Take your doses at regular intervals. Do not take your medicine more often than directed. Talk to your township supervisor regarding the use of this medicine in children. Special care may be needed. What side effects may I notice from receiving this medicine? Side effects that you should report to your doctor or health children's zoo caretaker as soon as possible: agitation, nervousness confusion hallucinations skin rash, itching Side effects that usually do not require medical attention (report to your doctor or health children's zoo caretaker if they continue or are bothersome): constipation diarrhea dizziness headache What may interact with this medicine? delavirdine itraconazole ketoconazole What if I miss a dose? If you miss a dose, take it as soon as you can. If it is almost time for your next dose, take only that dose. Do not take double or extra doses. Where should I keep my medicine? Keep out of the reach of children. Store at room temperature between 15 and 30 degrees C (59 and 86 degrees F). Do not freeze. Throw away any unused medicine after the expiration date. What should I tell my health care provider before I take this medicine? They need to know if you have any of these conditions: kidney or liver disease trouble swallowing an unusual or allergic reaction to famotidine, other medicines, foods, dyes, or preservatives or trying to get breast-feeding What should I watch for while using this medicine? Tell your doctor or health children's zoo caretaker if your condition does not start to get better or if it gets worse. Finish the full course of tablets prescribed, even if you feel better. Do not take with aspirin, ibuprofen or other antiinflammatory medicines. These can make your condition worse. Do not smoke cigarettes or drink alcohol. These cause irritation in your stomach and can increase the time it will take for ulcers to heal. If you get black, tarry stools or vomit up what looks like coffee grounds, call your doctor or health children's zoo caretaker at once. You may have a bleeding ulcer. You have been given the following additional information: Hives Food Allergy Allergic Reaction, Drug Allergic Reaction, Other (General) Fexofenadine Hydrochloride Oral tablet Prednisone Oral tablet Famotidine Oral tablet (Electronically signed by Allegra Griffith A.R.N.P. 03/29/2017 17:11)
--- NOTE | 2017-03-29 17:30 | ED MAR SUMMARY ---
..... Medication Administration Record [facility] [address] [place] [address] Patient: KINA JEONG Visit ID: [id number] 32y, M Weight: 103.4 kg Height/Length: 70 in BMI: 32.7 ALLERGIES: Methocarbamol Given 15:55 03/29/2017 Ruddy Redman RReedN. Medication Administered: PEPCID [PO] (FAMOTIDINE), Dose: 40 mg Tablets PO. Medication Ordered: Pepcid PO 40 mg (NOW). Given 15:56 03/29/2017 Ruddy Redman R.N. Medication Administered: BENADRYL [IM] (DIPHENHYDRAMINE HCL), Dose: 50 mg IM. Medication Ordered: Benadryl IM 50 mg (NOW). Given 15:58 03/29/2017 Ruddy Redman, R.N. Medication Administered: DECADRON [IM] (DEXAMETHASONE SODIUM PHOSPHATE), Dose: 8 mg IM. Medication Ordered: Decadron IM 8 mg (NOW).
--- NOTE | 2017-03-29 17:30 | ED MED RECONCILIATION SUMMARY ---
Patient: KINA JEONG JR Medication Reconciliation Report [facility] VisitID: [id number] [place] [address] 32y, M Registration Date/Time: 03/29/2017 Weight: 103.4 kg Height/Length: 70 in. BMI: 32.7 ALLERGIES: Methocarbamol The patient's Home Medications are listed below: THE FOLLOWING MEDICATIONS NEED TO BE RECONCILED: CHOLESTEROL MED Flexeril 10mg q 8 hrs Flomax Oral Gabepentin 800mg qid The source(s) of the original Home Medication information: Not obtained. The following Medications were given to the patient in the Emergency Department: Pepcid [PO] PO 40 mg, administered: 03/29/2017 3:55:00 PM Benadryl [IM] IM 50 mg, administered: 03/29/2017 3:56:00 PM Decadron [IM] IM 8 mg, administered: 03/29/2017 3:58:00 PM The following Medications were prescribed to the patient: Dina 180 mg tablets: take 1 orally daily for 10 days. Dispense ten (10). No refills. -- Allegra Griffith A.R.N.P. Prednisone 20 mg: take 3 orally every day for 10 days. Dispense thirty (30). No refills. -- Allegra Griffith A.R.N.P. Pepcid 40 mg RPD: take 1 orally at bedtime for 10 days. Dispense ten (10). No refills. -- Allegra Griffith A.R.N.P.
== END 2017-03-29 16:13 | disposition home or self-care (01) ==
LOC: ED SRH 14:46
DX: L50.9 Urticaria, unspecified (principal); I10 Essential (primary) hypertension; Z87.891 Personal history of nicotine dependence